=== PATIENT | female | born 1970 ===

== ENCOUNTER → 2017-12-02 | Outpatient (CLI) | payer OTHER ==
[~2017-12-02] MED LIST: ACYC400 PO; ALBU90I; ALBU90I INH; ALBU90OI INH; ALBU90OI6 INH; AMIT25 PO; AMIT50 PO; AMIT75 PO; AMLO5 PO; ARIP30 PO; ASPI81CH PO; BUPR150ER; BUPR150T2; BUPR150T2 PO; BYDUREON P2 MG/0.65 SQ; Byetta5 MCG/0.02 SC; CALCA500CH PO; CALGLU500; CARB200; CARB200ER; CLON.1 PO; CLON.5 PO; CLON1; CLON1 PO; CLON2; CLON2 PO; CODBUTACEC PO; CYCL10; CYCL10 PO; DESI25 PO; DESI50 PO; DESV50 PO; DIPATR PO; DOXE25; DOXE50; DULO30 PO; ERGO50000 PO; EXEN5PENI SUBQ; FENO160 PO; FENO54; FISH1000 PO; FLUO20; GABA300 PO; GLIM2 PO; GUAI120S1 PO; HYDACE5 PO; HYDPAM50 PO; IBUHYD; IBUP600; IBUP800 PO; INSUASPI SUBQ; INSULANPEN; INSULANPEN SC; KETO10 PO; LAMO100; LAMO100 PO; LATUDA80 MG PO; LIOT25; LISI20 PO; LORA1; LORA2 PO; METH10; METH10 PO; METO10 PO; METO50 PO; MODA200; MODA200 PO; OMEP20ER PO; OMEPRAZOLE MAGN20 MG PO; OXYACE5T; OXYC10ER; OXYC5; PARO20 PO; PRAM.125; PROM25 PO; Prilosec Otc20 MG PO; QUET100; QUET200; QUET300; QUET300 PO; RANI150; RANI150 PO; RISP1; RISP2 PO; RISP4 PO; ROXICODONE5 MG PO; RXHYDACE PO; RXPROM25 PO; Robaxin-750750 MG PO; SENN187; SERT25 PO; SERT50 PO; Strattera100 MG PO; TRAM50 PO; TRAZ100; TRAZ100 PO; TRAZ50; Ultram50 MG PO; VENL150ER; VENL75; Zithromax250 MG PO; [UNRECOGNIZED DRUG - CODE] PO; [UNRECOGNIZED DRUG - CODE] PO; [UNRECOGNIZED DRUG - REMARK]; [UNRECOGNIZED DRUG - REMARK]
[2017-12-02 16:21] LABS: U Amphetamine Screen DETECTED; U Barbituate Screen Not Detected; U Benzodiazapine Screen Not Detected; U Cocaine Screen Not Detected; U Methadone Screen Not Detected; U Methamphetamine Screen Not Detected; U Opiates Screen Not Detected; U Phencyclidine Screen Not Detected
[2017-12-02 16:22] LABS: U Buprenorphine Screen Not Detected; U Cannabinoids Screen Not Detected; U Oxycodone Screen Not Detected; U Propoxyphene Screen Not Detected
== END ==
LOC: LAB SHORT 14:35
PROVIDERS: Nurse Practitioner Psychiatric/Mental Health
DX: Z51.81 Encounter for therapeutic drug level monitoring (principal); Z79.899 Other long term (current) drug therapy

== ENCOUNTER → 2017-12-30 | Outpatient (CLI) | payer OTHER ==
[2017-12-30 19:54] LABS: U Amphetamine Screen DETECTED
[2017-12-30 19:55] LABS: U Barbituate Screen Not Detected; U Benzodiazapine Screen Not Detected; U Buprenorphine Screen Not Detected; U Cannabinoids Screen Not Detected; U Cocaine Screen Not Detected; U Methadone Screen Not Detected; U Methamphetamine Screen Not Detected; U Opiates Screen Not Detected; U Oxycodone Screen Not Detected; U Phencyclidine Screen Not Detected; U Propoxyphene Screen Not Detected
== END ==
LOC: LAB 17:30 → LAB SHORT 17:30
PROVIDERS: Nurse Practitioner Psychiatric/Mental Health
DX: Z51.81 Encounter for therapeutic drug level monitoring (principal); Z79.899 Other long term (current) drug therapy

== ENCOUNTER → 2018-01-20 | Outpatient (CLI) | payer OTHER ==
[2018-01-20 15:22] LABS: U Amphetamine Screen Not Detected; U Barbituate Screen Not Detected; U Benzodiazapine Screen Not Detected; U Buprenorphine Screen Not Detected; U Cannabinoids Screen Not Detected; U Cocaine Screen Not Detected; U Methadone Screen Not Detected; U Methamphetamine Screen Not Detected; U Opiates Screen Not Detected; U Oxycodone Screen Not Detected; U Phencyclidine Screen Not Detected; U Propoxyphene Screen Not Detected
== END | disposition home or self-care (01) ==
LOC: LAB 14:10 → LAB SHORT 14:10
PROVIDERS: Nurse Practitioner Psychiatric/Mental Health
DX: Z51.81 Encounter for therapeutic drug level monitoring (principal); Z79.899 Other long term (current) drug therapy

== ENCOUNTER → 2018-04-14 | Outpatient (CLI) | payer OTHER | LOC: LAB SHORT 15:57 → LAB 15:57 | DX: F15.21 Other stimulant dependence, in remission (principal); Z79.899 Other long term (current) drug therapy | CPT/HCPCS: G0480 ==

== ENCOUNTER → 2018-07-22 | Outpatient (CLI) | payer OTHER | END | disposition home or self-care (01) | LOC: LAB 12:57 → LAB SHORT 12:57 | DX: F90.2 Attention-deficit hyperactivity disorder, combined type (principal); Z79.899 Other long term (current) drug therapy | CPT/HCPCS: G0480 ==

== ENCOUNTER 2018-10-08 10:45 | Observation (INO) | payer OTHER ==
[~2018-10-08] VITALS: Ht 162.6 cm; Wt 117.0 kg
[2018-10-08 11:34] LABS: Source, Urine Voided
[2018-10-08 11:38] LABS: Bilirubin, Urine Neg (Neg); Blood, Urine Neg (Neg); Glucose Qualitative, Urine 4+ (Neg); Ketones, Urine 1+ (Neg); Leukocyte Esterase, Urine Neg (Neg); Nitrite, Urine Neg (Neg); Protein, Urine Neg (Neg); Specific Gravity, Urine 1.015 (1.003-1.022); Urobilinogen, Urine NORM (Normal)
[2018-10-08 11:39] LABS: Appearance, Urine Clear (Clear); Color, Urine Yellow (P-Yellow)
[2018-10-08 11:52] LABS: BASOPHILS ABSOLUTE AUTO 0.05 K/mm3 (0.00-0.23); BASOPHILS PERCENT AUTO 1 % (0-2); EOSINOPHILS ABSOLUTE AUTO 0.13 K/mm3 (0.00-0.68); EOSINOPHILS PERCENT AUTO 1 % (0-6); Hematocrit 45.2 % (33.0-51.0); Hemoglobin 15.5 g/dL (11.5-16.0); IMMATURE GRAN ABSOLUTE AUTO 0.04 K/mm3 (0.00-0.10); IMMATURE GRAN PERCENT AUTO 0 % (0-1); LYMPHOCYTES ABSOLUTE AUTO 2.43 K/mm3 (0.84-5.20); LYMPHOCYTES PERCENT AUTO 27 % (21-46); MONOCYTES PERCENT AUTO 7 % (4-13); Mean Corpuscular HGB 31.1 pg (26.0-34.0); Mean Corpuscular HGB Conc 34.3 g/dL (31.5-36.5); Mean Corpuscular Volume 91 fL (80-100); Mean Platelet Volume 9.5 fL (9.1-12.4); NEUTROPHILS PERCENT AUTO 65 % (41-73); Platelet Count 316 K/mm3 (150-400); RDW Coefficient Variation 12.1 % (11.7-14.2); RDW Standard Deviation 39.8 fL (35.1-46.3); Red Blood Cell Count 4.99 M/mm3 (3.80-5.20); White Blood Cell Count 9.15 K/mm3 (4.00-11.30)
[2018-10-08 11:54] LABS: U Amphetamine Screen DETECTED; U Barbituate Screen Not Detected; U Benzodiazapine Screen Not Detected; U Buprenorphine Screen Not Detected; U Cannabinoids Screen DETECTED; U Cocaine Screen Not Detected; U Methadone Screen Not Detected; U Methamphetamine Screen Not Detected; U Opiates Screen Not Detected; U Oxycodone Screen Not Detected; U Phencyclidine Screen Not Detected; U Propoxyphene Screen Not Detected
[2018-10-08 12:13] LABS: Alanine Aminotransfer (ALT/SGP 29 U/L (12-78); Albumin, Blood 3.7 g/dL (3.4-5.0); Albumin/Globulin Ratio 0.8 (0.8-1.8); Alk Phos 123 U/L (50-136); Anion Gap 9 mmol/L (6-16); Aspartate Aminotrans (AST/SGOT 31 U/L (12-37); Bilirubin, Total 0.5 mg/dL (0.1-1.0); Blood Urea Nitrogen 8 mg/dL (8-24); Bun/Creatinine Ratio 12.3 (12.0-20.0); CO2, Blood 27 mmol/L (21-32); Calcium, Blood 8.6 mg/dL (8.5-10.1); Chloride, Blood 99 mmol/L (98-108); Creatinine, Blood 0.65 mg/dL (0.40-1.00); Ethanol (Alcohol), Blood, Med <3 mg/dL; Globulin, Blood 4.4 g/dL (2.2-4.0); Glomerular Filtration Rate >60 (60-); Glucose, Blood 257 mg/dL (70-99); Potassium, Blood 3.8 mmol/L (3.5-5.5); Salicylate 3.5 mg/dL (2.8-20.0); Sodium, Blood 135 mmol/L (136-145); Total Protein, Blood 8.1 g/dL (6.4-8.2)
[2018-10-08 12:43] LABS: Acetaminophen, Random <2.0 ug/mL (10.0-30.0)
[2018-10-09] MEDS ORDERED: PRAZ1 (10:39)
[2018-10-09] MEDS ORDERED: Amphetamine Sal30 MG PO (10:41)
[2018-10-09] MEDS ORDERED: GLIP5 PO (10:41)
[2018-10-09] MEDS ORDERED: Prilosec Otc20 MG PO (10:42)
== END 2018-10-09 20:22 ==
LOC: ER 10:45 → EOR 10:46
PROVIDERS: ADMIT Emergency Medicine
DX: F31.4 Bipolar disorder, current episode depressed, severe, without psychotic features (principal); F43.20 Adjustment disorder, unspecified; F43.9 Reaction to severe stress, unspecified; J45.909 Unspecified asthma, uncomplicated; G43.909 Migraine, unspecified, not intractable, without status migrainosus; F17.200 Nicotine dependence, unspecified, uncomplicated; Z88.8 Allergy status to other drugs, medicaments and biological substances; Z88.5 Allergy status to narcotic agent; Z79.899 Other long term (current) drug therapy; Z79.4 Long term (current) use of insulin
CPT/HCPCS: 36415; 80053; 81003; 81025; 82947; 83036; 84443; 85025; 99285-25; G0378; G0480; Q3014

== ENCOUNTER 2019-01-30 16:19 | Observation (INO) | payer OTHER ==
[~2019-01-30] VITALS: Ht 162.6 cm; Wt 113.4 kg
[~2019-01-30 16:19] MED LIST changes: +Amphetamine Sal30 MG PO; +GLIP5 PO; +PRAZ1 PO
[2019-01-30 16:46] LABS: BASOPHILS ABSOLUTE AUTO 0.04 K/mm3 (0.00-0.23); BASOPHILS PERCENT AUTO 1 % (0-2); EOSINOPHILS ABSOLUTE AUTO 0.12 K/mm3 (0.00-0.68); EOSINOPHILS PERCENT AUTO 1 % (0-6); Hemoglobin 15.2 g/dL (11.5-16.0); IMMATURE GRAN ABSOLUTE AUTO 0.02 K/mm3 (0.00-0.10); IMMATURE GRAN PERCENT AUTO 0 % (0-1); LYMPHOCYTES ABSOLUTE AUTO 2.04 K/mm3 (0.84-5.20); LYMPHOCYTES PERCENT AUTO 23 % (21-46); MONOCYTES ABSOLUTE AUTO 0.61 K/mm3 (0.16-1.47); MONOCYTES PERCENT AUTO 7 % (4-13); Mean Corpuscular HGB 30.6 pg (26.0-34.0); Mean Corpuscular Volume 93 fL (80-100); Mean Platelet Volume 9.5 fL (9.1-12.4); NEUTROPHILS ABSOLUTE AUTO 6.03 K/mm3 (1.96-9.15); NEUTROPHILS PERCENT AUTO 68 % (41-73); Platelet Count 282 K/mm3 (150-400); RDW Coefficient Variation 12.4 % (11.7-14.2); Red Blood Cell Count 4.96 M/mm3 (3.80-5.20); White Blood Cell Count 8.86 K/mm3 (4.00-11.30)
[2019-01-30 17:16] LABS: Alanine Aminotransfer (ALT/SGP 31 U/L (12-78); Albumin, Blood 3.3 g/dL (3.4-5.0); Albumin/Globulin Ratio 0.8 (0.8-1.8); Alk Phos 119 U/L (50-136); Anion Gap 9 mmol/L (6-16); Aspartate Aminotrans (AST/SGOT 20 U/L (12-37); Bilirubin, Total 0.5 mg/dL (0.1-1.0); Blood Urea Nitrogen 8 mg/dL (8-24); Bun/Creatinine Ratio 12.6 (12.0-20.0); CO2, Blood 24 mmol/L (21-32); Calcium, Blood 8.4 mg/dL (8.5-10.1); Chloride, Blood 105 mmol/L (98-108); Creatinine, Blood 0.63 mg/dL (0.40-1.00); Ethanol (Alcohol), Blood, Med 30 mg/dL; Globulin, Blood 3.9 g/dL (2.2-4.0); Glomerular Filtration Rate >60 (60-); Glucose, Blood 153 mg/dL (70-99); Potassium, Blood 4.2 mmol/L (3.5-5.5); Salicylate 4.2 mg/dL (2.8-20.0); Sodium, Blood 138 mmol/L (136-145); Total Protein, Blood 7.2 g/dL (6.4-8.2)
[2019-01-30 17:26] LABS: Acetaminophen, Random <2.0 ug/mL (10.0-30.0)
[2019-01-30 18:09] LABS: Source, Urine Clean Catch
[2019-01-30 18:12] LABS: Bilirubin, Urine Neg (Neg); Blood, Urine 1+ (Neg); Glucose Qualitative, Urine Neg (Neg); Ketones, Urine Neg (Neg); Leukocyte Esterase, Urine Neg (Neg); Nitrite, Urine Neg (Neg); Protein, Urine Neg (Neg); Specific Gravity, Urine 1.015 (1.003-1.022); Urobilinogen, Urine NORM (Normal)
[2019-01-30 18:22] LABS: Appearance, Urine Clear (Clear); Color, Urine Yellow (P-Yellow)
[2019-01-30 18:23] LABS: Bacteria Mod /hpf; Red Blood Cells, Urine 0-2 /hpf (0-2); Squamous Epithelial Cells Rare /hpf (Few); White Blood Cells, Urine 0-2 /hpf (0-5)
[2019-01-30 18:28] LABS: U Amphetamine Screen DETECTED; U Barbituate Screen Not Detected; U Benzodiazapine Screen Not Detected; U Buprenorphine Screen Not Detected; U Cannabinoids Screen DETECTED; U Cocaine Screen Not Detected; U Methadone Screen Not Detected; U Methamphetamine Screen Not Detected; U Opiates Screen Not Detected; U Oxycodone Screen Not Detected; U Phencyclidine Screen Not Detected; U Propoxyphene Screen Not Detected
== END 2019-02-02 19:55 | disposition home or self-care (01) ==
LOC: ER 16:19 → EOR 16:20
PROVIDERS: Physician Assistant; ADMIT Emergency Medicine
DX: F33.2 Major depressive disorder, recurrent severe without psychotic features (principal); F17.210 Nicotine dependence, cigarettes, uncomplicated; Z88.5 Allergy status to narcotic agent; Z88.8 Allergy status to other drugs, medicaments and biological substances; Z79.899 Other long term (current) drug therapy
CPT/HCPCS: 36415; 80053; 81001; 81025; 82947; 84443; 85025; 87086; 99285; G0378; G0480; Q3014

== ENCOUNTER 2019-08-16 13:01 | Observation (INO) | payer OTHER ==
[~2019-08-16] VITALS: Ht 162.6 cm; Wt 99.8 kg
[2019-08-16 14:53] LABS: BASOPHILS ABSOLUTE AUTO 0.04 K/mm3 (0.00-0.23); BASOPHILS PERCENT AUTO 0 % (0-2); EOSINOPHILS ABSOLUTE AUTO 0.12 K/mm3 (0.00-0.68); EOSINOPHILS PERCENT AUTO 1 % (0-6); Hematocrit 39.7 % (33.0-51.0); Hemoglobin 13.1 g/dL (11.5-16.0); IMMATURE GRAN ABSOLUTE AUTO 0.04 K/mm3 (0.00-0.10); IMMATURE GRAN PERCENT AUTO 0 % (0-1); LYMPHOCYTES ABSOLUTE AUTO 1.98 K/mm3 (0.84-5.20); LYMPHOCYTES PERCENT AUTO 21 % (21-46); MONOCYTES ABSOLUTE AUTO 0.58 K/mm3 (0.16-1.47); MONOCYTES PERCENT AUTO 6 % (4-13); Mean Corpuscular HGB 30.8 pg (26.0-34.0); Mean Corpuscular Volume 93 fL (80-100); Mean Platelet Volume 9.5 fL (9.1-12.4); NEUTROPHILS ABSOLUTE AUTO 6.63 K/mm3 (1.96-9.15); NEUTROPHILS PERCENT AUTO 71 % (41-73); Platelet Count 283 K/mm3 (150-400); RDW Coefficient Variation 12.6 % (11.7-14.2); Red Blood Cell Count 4.26 M/mm3 (3.80-5.20); White Blood Cell Count 9.39 K/mm3 (4.00-11.30)
[2019-08-16 15:18] LABS: Alanine Aminotransfer (ALT/SGP 20 U/L (12-78); Albumin, Blood 3.5 g/dL (3.4-5.0); Albumin/Globulin Ratio 0.9 (0.8-1.8); Alk Phos 80 U/L (50-136); Anion Gap 6 mmol/L (6-16); Aspartate Aminotrans (AST/SGOT 13 U/L (12-37); Bilirubin, Total 0.3 mg/dL (0.1-1.0); Blood Urea Nitrogen 14 mg/dL (8-24); Bun/Creatinine Ratio 21.4 (12.0-20.0); CO2, Blood 26 mmol/L (21-32); Calcium, Blood 8.9 mg/dL (8.5-10.1); Chloride, Blood 107 mmol/L (98-108); Creatinine, Blood 0.65 mg/dL (0.40-1.00); Ethanol (Alcohol), Blood, Med <3 mg/dL; Glomerular Filtration Rate >60 (60-); Glucose, Blood 111 mg/dL (70-99); Potassium, Blood 4.1 mmol/L (3.5-5.5); Salicylate 3.7 mg/dL (2.8-20.0); Sodium, Blood 139 mmol/L (136-145); Total Protein, Blood 7.5 g/dL (6.4-8.2)
[2019-08-16 15:36] LABS: Acetaminophen, Random <2.0 ug/mL (10.0-30.0)
[2019-08-17 12:34] LABS: Source, Urine Clean Catch
[2019-08-17 12:43] LABS: Bilirubin, Urine Neg (Neg); Blood, Urine Neg (Neg); Glucose Qualitative, Urine Neg (Neg); Ketones, Urine Neg (Neg); Leukocyte Esterase, Urine Neg (Neg); Nitrite, Urine Neg (Neg); Protein, Urine Neg (Neg); Urobilinogen, Urine NORM (Normal)
[2019-08-17 12:46] LABS: Appearance, Urine Clear (Clear); Color, Urine Yellow (P-Yellow)
[2019-08-17 13:02] LABS: U Amphetamine Screen Not Detected; U Barbituate Screen Not Detected; U Benzodiazapine Screen Not Detected; U Buprenorphine Screen Not Detected; U Cannabinoids Screen Not Detected; U Cocaine Screen Not Detected; U Methadone Screen Not Detected; U Methamphetamine Screen Not Detected; U Opiates Screen Not Detected; U Oxycodone Screen Not Detected; U Phencyclidine Screen Not Detected; U Propoxyphene Screen Not Detected
== END 2019-08-18 10:30 ==
LOC: ER 13:01 → EOR 13:02
PROVIDERS: Physician Assistant; ADMIT Emergency Medicine
DX: R45.851 Suicidal ideations (principal); Z88.5 Allergy status to narcotic agent; Z88.8 Allergy status to other drugs, medicaments and biological substances
CPT/HCPCS: 80053; 81003; 81025; 85025; 99285-25; G0378; G0480; Q0177

== ENCOUNTER → 2019-09-15 | Outpatient (CLI) | payer OTHER ==
[2019-09-16 10:17] LABS: Candida species (DNA Probe) Negative (NEGATIVE); G. vaginalis (DNA Probe) Negative (NEGATIVE); T. vaginalis (DNA Probe) Negative (NEGATIVE)
[2019-09-18 04:10] LABS: CHLAMYDIA TRACHOMATIS, NAA Negative (Negative); HPV 16 Negative (Negative); HPV 18 Negative (Negative); HPV OTHER HR TYPES Positive (Negative); NEISSERIA GONORRHOEAE, NAA Negative (Negative)
== END ==
LOC: LAB 17:34 → LAB SHORT 17:34
PROVIDERS: Family Medicine
DX: Z12.4 Encounter for screening for malignant neoplasm of cervix (principal); N89.8 Other specified noninflammatory disorders of vagina; Z20.2 Contact with and (suspected) exposure to infections with a predominantly sexual mode of transmission
CPT/HCPCS: 87480; 87510; 87660

== ENCOUNTER 2020-09-17 00:09 | Inpatient (IN) | payer OTHER ==
[~2020-09-17] VITALS: Ht 170.2 cm; Wt 77.5 kg
[2020-09-17 00:24] LABS: Source, Urine Catheter
[2020-09-17 00:29] LABS: Bilirubin, Urine Neg (Neg); Blood, Urine 3+ (Neg); Glucose Qualitative, Urine Neg (Neg); Ketones, Urine 1+ (Neg); Leukocyte Esterase, Urine 1+ (Neg); Nitrite, Urine Pos (Neg); Protein, Urine 2+ (Neg); Urobilinogen, Urine NORM (Normal); pH, Urine 6.5 (5.0-8.0)
[2020-09-17 00:34] LABS: Appearance, Urine Cloudy (Clear); Color, Urine Yellow (P-Yellow)
[2020-09-17 00:34] LABS: PCO2 Arterial 41.6 mmHg (35-45); PO2 Arterial 88.3 mmHg (80-100); pH Blood Arterial 7.41 (7.35-7.45)
[2020-09-17 00:36] LABS: Amorphous Light (0-Heavy); Bacteria Many /hpf; Red Blood Cells, Urine 0-2 /hpf (0-2); Squamous Epithelial Cells Many /hpf (Few); White Blood Cells, Urine 0-2 /hpf (0-5)
[2020-09-17 00:40] LABS: U Amphetamine Screen Not Detected; U Barbituate Screen Not Detected; U Benzodiazapine Screen DETECTED; U Buprenorphine Screen Not Detected; U Cannabinoids Screen DETECTED; U Cocaine Screen Not Detected; U Methadone Screen Not Detected; U Methamphetamine Screen Not Detected; U Opiates Screen Not Detected; U Oxycodone Screen Not Detected; U Phencyclidine Screen Not Detected; U Propoxyphene Screen Not Detected
[2020-09-17 00:55] LABS: BASOPHILS ABSOLUTE AUTO 0.05 K/mm3 (0.00-0.23); BASOPHILS PERCENT AUTO 0 % (0-2); EOSINOPHILS ABSOLUTE AUTO 0.08 K/mm3 (0.00-0.68); EOSINOPHILS PERCENT AUTO 1 % (0-6); IMMATURE GRAN ABSOLUTE AUTO 0.06 K/mm3 (0.00-0.10); IMMATURE GRAN PERCENT AUTO 1 % (0-1); LYMPHOCYTES ABSOLUTE AUTO 2.54 K/mm3 (0.84-5.20); LYMPHOCYTES PERCENT AUTO 20 % (21-46); MONOCYTES ABSOLUTE AUTO 0.77 K/mm3 (0.16-1.47); MONOCYTES PERCENT AUTO 6 % (4-13); Mean Corpuscular HGB 31.6 pg (26.0-34.0); Mean Corpuscular HGB Conc 34.1 g/dL (31.5-36.5); Mean Corpuscular Volume 93 fL (80-100); NEUTROPHILS ABSOLUTE AUTO 9.35 K/mm3 (1.96-9.15); NEUTROPHILS PERCENT AUTO 73 % (41-73); RDW Coefficient Variation 12.8 % (11.7-14.2); Red Blood Cell Count 4.75 M/mm3 (3.80-5.20); White Blood Cell Count 12.85 K/mm3 (4.00-11.30)
[2020-09-17 01:06] LABS: Mean Platelet Volume 9.8 fL (9.1-12.4); Platelet Count 323 K/mm3 (150-400)
[2020-09-17 01:11] LABS: Ethanol (Alcohol), Blood, Med <3 mg/dL; Salicylate <1.7 mg/dL (2.8-20.0)
[2020-09-17 01:12] LABS: Alanine Aminotransfer (ALT/SGP 24 U/L (12-78); Albumin, Blood 3.1 g/dL (3.4-5.0); Albumin/Globulin Ratio 0.8 (0.8-1.8); Alk Phos 73 U/L (50-136); Anion Gap 2 mmol/L (6-16); Aspartate Aminotrans (AST/SGOT 32 U/L (12-37); Bilirubin, Total 0.8 mg/dL (0.1-1.0); Blood Urea Nitrogen 10 mg/dL (8-24); Bun/Creatinine Ratio 17.2 (12.0-20.0); CO2, Blood 30 mmol/L (21-32); Calcium, Blood 8.5 mg/dL (8.5-10.1); Chloride, Blood 107 mmol/L (98-108); Creatinine, Blood 0.58 mg/dL (0.40-1.00); Glomerular Filtration Rate >60 (60-); Glucose, Blood 100 mg/dL (70-99); Potassium, Blood 4.5 mmol/L (3.5-5.5); Sodium, Blood 139 mmol/L (136-145); Total Protein, Blood 7.1 g/dL (6.4-8.2)
[2020-09-17 01:21] LABS: Acetaminophen, Random <2.0 ug/mL (10.0-30.0)
--- NOTE | 2020-09-17 03:30 | NUR ---
PT TO ICU 14 VIA [place] WITH ED RN @ 0147. PT RESTING IN BED, MOANING, DOES NOT FOLLOW COMMANDS, CHEWING MOTIONS AND LIP SMACKING NOTED, PT ALSO APPEARS TO HAVE SOME LIGHT SENSITIVITY AND COVERS HER EYES WITH HER HANDS. O2 SATURATIONS> 95% ON RA, RESPIRATIONS ARE EVEN AND UNLABORED. MONITOR SHOWS SINUS RHYTHM WITH HR 80'S WITH INCREASES TO 100-110 WITH NURSING CARE, BP STABLE WITH SBP 150'S-160'S. PT INCONTINENT OF URINE AND STOOL, ATTENDS PLACED. REDNESS TO PTS ARMS BILATERALLY, BLANCHABLE AND WARM TO THE TOUCH. PT MOVES ALL EXTREMETIES, DIFFICULT TO REPOSITION, PERFORM TERRY CARE AND APPLY ATTENDS R/T PTS RIGIDITY AND RESISTANCE TO NURSING CARE. CALL PLACED TO DR SIMON TO NOTIFY OF PTS ARRIVAL TO UNIT.
--- NOTE | 2020-09-17 04:00 | NUR ---
DR SIMON IN TO EVALUATE PT
[2020-09-17 04:47] LABS: Source, Urine Catheter
[2020-09-17 04:55] LABS: BASOPHILS ABSOLUTE AUTO 0.05 K/mm3 (0.00-0.23); BASOPHILS PERCENT AUTO 0 % (0-2); EOSINOPHILS ABSOLUTE AUTO 0.08 K/mm3 (0.00-0.68); EOSINOPHILS PERCENT AUTO 1 % (0-6); Hematocrit 41.7 % (33.0-51.0); Hemoglobin 14.1 g/dL (11.5-16.0); IMMATURE GRAN ABSOLUTE AUTO 0.04 K/mm3 (0.00-0.10); IMMATURE GRAN PERCENT AUTO 0 % (0-1); LYMPHOCYTES ABSOLUTE AUTO 2.79 K/mm3 (0.84-5.20); LYMPHOCYTES PERCENT AUTO 22 % (21-46); MONOCYTES ABSOLUTE AUTO 0.84 K/mm3 (0.16-1.47); MONOCYTES PERCENT AUTO 7 % (4-13); Mean Corpuscular HGB 30.9 pg (26.0-34.0); Mean Corpuscular HGB Conc 33.8 g/dL (31.5-36.5); Mean Corpuscular Volume 91 fL (80-100); Mean Platelet Volume 9.4 fL (9.1-12.4); NEUTROPHILS ABSOLUTE AUTO 8.92 K/mm3 (1.96-9.15); NEUTROPHILS PERCENT AUTO 70 % (41-73); Platelet Count 348 K/mm3 (150-400); RDW Coefficient Variation 12.7 % (11.7-14.2); RDW Standard Deviation 42.8 fL (35.1-46.3); Red Blood Cell Count 4.56 M/mm3 (3.80-5.20); White Blood Cell Count 12.72 K/mm3 (4.00-11.30)
[2020-09-17 04:59] LABS: Bilirubin, Urine Neg (Neg); Blood, Urine Neg (Neg); Glucose Qualitative, Urine Neg (Neg); Ketones, Urine Neg (Neg); Leukocyte Esterase, Urine Neg (Neg); Nitrite, Urine Neg (Neg); Protein, Urine Neg (Neg); Urobilinogen, Urine NORM (Normal)
[2020-09-17 05:15] LABS: Alanine Aminotransfer (ALT/SGP 21 U/L (12-78); Albumin, Blood 3.1 g/dL (3.4-5.0); Albumin/Globulin Ratio 0.8 (0.8-1.8); Alk Phos 72 U/L (50-136); Anion Gap 5 mmol/L (6-16); Aspartate Aminotrans (AST/SGOT 15 U/L (12-37); Bilirubin, Total 0.7 mg/dL (0.1-1.0); Blood Urea Nitrogen 11 mg/dL (8-24); Bun/Creatinine Ratio 20.6 (12.0-20.0); CO2, Blood 27 mmol/L (21-32); Calcium, Blood 8.3 mg/dL (8.5-10.1); Chloride, Blood 108 mmol/L (98-108); Creatinine, Blood 0.53 mg/dL (0.40-1.00); Globulin, Blood 3.7 g/dL (2.2-4.0); Glomerular Filtration Rate >60 (60-); Glucose, Blood 99 mg/dL (70-99); Potassium, Blood 3.7 mmol/L (3.5-5.5); Sodium, Blood 140 mmol/L (136-145); Total Protein, Blood 6.8 g/dL (6.4-8.2)
[2020-09-17 05:21] LABS: Appearance, Urine Clear (Clear); Color, Urine Yellow (P-Yellow)
--- NOTE | 2020-09-17 07:33 | NUR ---
SHIFT SUMMARY NO ACUTE CHANGES, PT REMAINS WITH DEC LOC, WITHDRAWS FROM PAINFUL STIMULI, RESISTANT TO NURSING CARE. PT WILL NOD HEAD BOTH YES AND NO TO QUESTIONS BUT DOES NOT FOLLOW SIMPLE COMMANDS. PT RESTS T/O SHIFT, REMAINS ON RA, VSS. LINDQUIST PLACED THIS SHIFT, SPECIMENT SENT TO LAB. PT MOVES ALL EXTREMETIES, REPOSITONS SELF IN BED. REPORT GIVEN TO IGNACIO MORILLO.
[2020-09-17 07:58] LABS: Free Thyroxine 1.16 ng/dL (0.70-1.60); Thyroid Stimulating Hormone 2.66 uIU/mL (0.360-4.800)
--- NOTE | 2020-09-17 08:12 | NUR ---
PT LAYING IN BED WITH EYES CLOSED. PT MOANS ONLY. PT IS RESISTANT TO CARE. DIFFICULT TO ASSESS PUPILS PT WILL CLOSE EYES TIGHTLY UPON ATTEMPTING TO OPEN THEM. PT BRINGS HANDS UP TO HEAD AND MOANS; MAY HAVE HEADACHE. NECK DOESNT APPEAR STIFF; ABLE TO MOVE IT DOWN W/O INCREASED REACTION. PT OCCASSIONALLY WILL OPEN EYES AND LOOK AT YOU WHEN NAME SAID LOUDLY, WILL QUICKLY CLOSE EYES AGAIN. DOES NOT FOLLOW ANY DIRECTIONS OR ANSWER ANY QUESTIONS. BP HTN. AFEBRILE. NS RUNNING AT 100CC/HR. PT NPO. ORAL CARE ATTEMPTED, RESISTANT TO ORAL CARE.
--- NOTE | 2020-09-17 08:28 | NUR ---
DR KABA IN TO SEE PT; FULL UPDATE GIVEN. IV FLUIDS INCREASED TO 125CC/HR
--- NOTE | 2020-09-17 11:19 | NUR ---
PT MORE ALERT WHEN ASSESSED. HAS A BLANK STARE WHEN SPEAKING TO HER, UNABLE TO FOLLOW DIRECTIONS. NOT SPEAKING WORDS, BUT GROANING HAS DECREASED. ROCEPHIN IV STARTED. LOW GRADE TEMP AT 99.1, NO OTHER CHANGES. PT'S MOTHER CALLED FOR INFORMATION. NO NEXT OF KIN LISTED. MOTHER NOTIFIED THAT DAUGHTER IS HERE AND IS ABLE TO VISIT. PT HAS SON PER MOTHER. PT'S MOTHER REFUSED TO GIVE PHONE NUMBER FOR SON BUT STATED SHE WOULD CALL HIM.
--- NOTE | 2020-09-17 11:37 | NUR ---
PT'S SON CALLED; WHOM IS NOEXT OF KIN. UPDATE PROVIDED.
--- NOTE | 2020-09-17 15:50 | NUR ---
NO CHANGE IN PT ASSESSMENT. PT'S MOTHER AT BEDSIDE; GIVEN UPDATE BY DR KABA. PT NOW PCU STATUS.
--- NOTE | 2020-09-17 16:29 | NUR ---
REPORT GIVEN TO JESUS MORILLO. PT TRANSFERED TO PCU 2 VIA BED.
--- NOTE | 2020-09-17 16:51 | NUR ---
TRANSFER TO PCU 2: TRANSFER FROM ICU VIA BED. PT EYES OPEN, NOT RESPONDING VERBALLY. MOANED TWICE. BRIEF CHANGED AND REPOSITIONED IN BED. VITAL SIGNS STABLE. ON ROOM AIR SATING ABOVE 92%. TELE BOX CALLED AND CONFIRMED, SINUS RHYTHM AT 93. PT NOT RESPONDING TO CARES QUESTIONS. DOES NOT APPEAR IN ANY PAIN. LINDQUIST CATH IN PLACE DRAINING TO GRAVITY. CBG TAKEN AT 89. LR INFUSING AT 125 ML/HR. WILL CONTINUE TO MONITOR.
--- NOTE | 2020-09-17 18:03 | NUR ---
SHIFT SUMMARY: PT SLEEPING IN ROOM SINCE TRANSFER. NODDING YES AND NO TO CARES QUESTIONS. NONVERBAL. NO CHANGES SINCE LAST NOTE. WILL CONTINUE TO MONITOR AND REPORT OFF. Q2 TURNING. NO ACUTE CHANGES.
--- NOTE | 2020-09-18 00:26 | NUR ---
LOW CBG / CALL TO MD CALL TO MD SIMON TO REPORT PT NPO W/ CBG 69. MD W/ ORDER TO DC LR GTT & GIVE 25 MLS 50% DEXTROSE IV & 1.5L D5 1/2 NS GTT, SEE ORDERS.
[2020-09-18 04:07] LABS: BASOPHILS ABSOLUTE AUTO 0.03 K/mm3 (0.00-0.23); BASOPHILS PERCENT AUTO 0 % (0-2); EOSINOPHILS ABSOLUTE AUTO 0.17 K/mm3 (0.00-0.68); EOSINOPHILS PERCENT AUTO 2 % (0-6); Hematocrit 42.1 % (33.0-51.0); Hemoglobin 14.3 g/dL (11.5-16.0); IMMATURE GRAN ABSOLUTE AUTO 0.03 K/mm3 (0.00-0.10); IMMATURE GRAN PERCENT AUTO 0 % (0-1); LYMPHOCYTES ABSOLUTE AUTO 3.16 K/mm3 (0.84-5.20); LYMPHOCYTES PERCENT AUTO 37 % (21-46); MONOCYTES ABSOLUTE AUTO 0.77 K/mm3 (0.16-1.47); MONOCYTES PERCENT AUTO 9 % (4-13); Mean Corpuscular HGB 31.5 pg (26.0-34.0); Mean Corpuscular Volume 93 fL (80-100); Mean Platelet Volume 9.4 fL (9.1-12.4); NEUTROPHILS ABSOLUTE AUTO 4.43 K/mm3 (1.96-9.15); NEUTROPHILS PERCENT AUTO 52 % (41-73); Platelet Count 287 K/mm3 (150-400); RDW Coefficient Variation 12.6 % (11.7-14.2); RDW Standard Deviation 43.7 fL (35.1-46.3); Red Blood Cell Count 4.54 M/mm3 (3.80-5.20); White Blood Cell Count 8.59 K/mm3 (4.00-11.30)
[2020-09-18 04:27] LABS: Anion Gap 4 mmol/L (6-16); Blood Urea Nitrogen 10 mg/dL (8-24); Bun/Creatinine Ratio 16.1 (12.0-20.0); CO2, Blood 28 mmol/L (21-32); Calcium, Blood 8.3 mg/dL (8.5-10.1); Chloride, Blood 108 mmol/L (98-108); Creatinine, Blood 0.62 mg/dL (0.40-1.00); Glomerular Filtration Rate >60 (60-); Glucose, Blood 95 mg/dL (70-99); Potassium, Blood 3.7 mmol/L (3.5-5.5); Sodium, Blood 140 mmol/L (136-145)
--- NOTE | 2020-09-18 06:35 | NUR ---
SHIFT SUMMARY PT LETHARGIC. OPENS EYES TO VERBAL STIMULI W/ TOUCH. PT NOT ANSWERING Y/N Q's. PT STARING/GLARING ONLY. VSS. D5 1/2 NS GTT INFUSING PER ORDERS. CBG's STABLE. BED ALARM ON.
--- NOTE | 2020-09-18 08:04 | NUR ---
ASSUMED CARE FROM NOC RN PT REMAINS NONVERBAL. PT WILL GLANCE AT RN WHEN SPOKEN TO THEN FALLS BACK ASLEEP. PT IS INCONTINENT OF STOOL AND HAS LINDQUIST IN PLACE AND DRAINING. SLIGHT ELEVATED BP THIS MORNING. PT SCHEDULED FOR EEG TODAY.
--- NOTE | 2020-09-18 12:47 | NUR ---
EEG PT STILL ONLY RESPONDING TO VERBAL STIMULI OCCASSIONALLY, SHE WILL MAKE EYE CONTACT THEN QUICKLY GO BACK TO SLEEP. PT HAS AN EEG ORDERED, THE MIMEOGRAPH OPERATOR IS AVAILABLE FOR TESTING FRIDAY-FRIDAY 8-4PM. THE ORDER WILL REMAIN IN PLACE AND HOPEFULLY TOMORROW THE PT CAN HAVE THE EEG COMPLETED
--- NOTE | 2020-09-18 18:04 | NUR ---
SHIFT SUMMARY PT REMAINS MOSTLY NONVERBAL THROUGHOUT THE DAY. SHE WILL NOD AND OCCASSIONALLY GRUNT AT ONE POINT TODAY SHE SAID "YEAH" IN RESPONSE TO A QUESTION BUT ONLY ONCE DID THIS HAPPEN. PT HAS BEEN INCONTINENT OF STOOL AND HAS A CATHETER IN PLACE FOR URINE. PT'S SON IS INVOLVED AND IS HER NEXT OF KIN AND HEALTHCARE REP; HE HAS STATED THAT ONLY HIM, ZAKI, HIS GRANDMOTHER GANGA AND HIS MOTHER'S FRIEND, MYRTLE ARE THE ONLY PEOPLE WHO CAN KNOW ANYTHING ABOUT THE PATIENT; SHE IS CONFIDENTIAL. PT HAS BEEN MORE ALERT THIS AFTERNOON BUT STILL DOES NOT RESPOND MORE THAN A NOD OR SHAKE HER HEAD. PT IS IN HER ROOM WATCHING TV AT THIS TIME
--- NOTE | 2020-09-19 04:46 | NUR ---
SHIFT SUMMARY PATIENT RESPONDS TO VERBAL STIMULI, SOMETIMES SHE JUST STARES BUT OCCASIONALLY SHE ANSWERS QUESTIONS BY NODDING HER HEAD YES OR NO. PATIENT WOULD FOLLOW DIRECTION SOMETIMES BUT NOT OTHERS. PATIENT TURNED Q2 HOURS, LINDQUIST CATHETER DRAINING, BRIEF CHANGES NEEDED, PATIENT INCONTINENT OF BOWEL. WASHED PATIENTS HAIR AND FACE. VSS, NO ACUTE CHANGES. CALL LIGHT IN REACH, BED IN LOW POSITION, BED ALARM ON.
--- NOTE | 2020-09-19 07:26 | NUR ---
BLOOD GLUCOSE CHECKED @1939 WAS 116 08/21/20, DID NOT TRANSFER TO COMPUTER.
--- NOTE | 2020-09-19 08:09 | NUR ---
ASSUMED CARE FROM NOC RN PT WAS SLEEPING DURING MORNING REPORT. WHEN YISEL PETERS WENT TO ASSESS THE PT SHE WAS STILL SLEEPING BUT WAS VERY DIFFICULT TO AROUSE. PUPILS WERE REACTIVE, PT REACTED TO PAINFUL STIMULI BY DR. KABA BUT WOULD NOT SQUEEZE HANDS SHE WOULD YESTERDAY. PT WAS VERY LETHARGIC AND WOULD NOT STAY AWAKE FOR MORE THAN A FEW SECONDS. A CBG WAS COMPLETED AGAIN AND WAS 91, AND A URINE TOX SCREEN WAS SENT AGAIN FOR RECHECK. BP IS ELEVATED, DR KABA IS AWARE. PT IS RESTING AT THIS TIME. ADDENDUM TO YESTERDAY 09/18/20 THE CBG SCHEDULED FOR TESTING AT 1800 DID NOT TRANSFER TO THE EMAR; YISEL PETERS DID CHECK THE CBG AND RECORDED IT SUCH ON THE EMAR WHEN CHARTING NOT GIVEN ON THE 1800 HUMALOG; THE CBG WAS 108.
[2020-09-19 08:26] LABS: U Amphetamine Screen Not Detected; U Barbituate Screen Not Detected; U Benzodiazapine Screen DETECTED; U Buprenorphine Screen Not Detected; U Cannabinoids Screen DETECTED; U Cocaine Screen Not Detected; U Methadone Screen Not Detected; U Methamphetamine Screen Not Detected; U Opiates Screen Not Detected; U Oxycodone Screen Not Detected; U Phencyclidine Screen Not Detected; U Propoxyphene Screen Not Detected
--- NOTE | 2020-09-19 17:24 | NUR ---
SHIFT SUMMARY PT HAS BEEN LETHARGIC TODAY AND REMAINS NON VERBAL. THE DAY WENT ON SHE DID INTERACT MORE WITH STAFF, SHE BECAME MORE ALERT BUT IS STILL NOT USING HER CALL LIGHT OR TALKING. PT HAD AN MRI COMPLETED TODAY AND VISITED WITH HER MOTHER. AN EEG HAS BEEN ORDERED AND RN LORRAINE AND SAMMYING MACHINE OPERATORMEKHI URIOSTEGUI CALLED MULTIPLE TIMES TO HAVE THE EEG COMPLETED, A MESSAGE WAS LEFT AND THERE WAS NO RESPONSE, NO CALL RETURNED; THE EEG HAS NOT BEEN COMPLETED. PT HAS MAINTENENCE FLUIDS RUNNING AT THIS TIME AND IS RESTING IN BED. SHE HAS BEEN FREQUENTLY REPOSITIONED AND PT HAS INDEPENDENTLY REPOSITIONED DURING THE DAY. PT HAS LINDQUIST IN PLACE AND IS DRAINING. VS STABLE, PT REMAINS ON RA AND IS NOW WITHOUT TELE HER STATUS WAS CHANGED TO MEDICAL. PT'S MOTHER MENTIONED WANTING THE PT TO BE DISCHARGED TO AN [facility] TO WHICH THE PT NODDED IN AGREEMENT.
--- NOTE | 2020-09-19 21:56 | NUR ---
ASSUMED CARE OF PATIENT AT APPROIMATELY 1905 FROM YVETTE Holloway RN. PATIENT OPENS EYES TO STAFF ENTERING ROOM AT TIMES; OPENS EYES TO TOUCH AT TIMES. PATIENT NONVERBAL; NODS HEAD YES OR NO; DOESNT FOLLOW COMMANDS; DOESNT ASSIST WITH TURNING IN BED. MEDICAL NO TELE STATUS; OXYGEN SATURATION ABOVE 90% ON ROOM AIR. PATIENT REFUSED ORAL CARE BUT ALLOWED STAFF TO PUT CHAPSTICK ON. PATIENT HAS URINARY CATHETER; ATTENDS IN PLACE FOR STOOL INCONTINENCE AT TIMES. IVF INFUSING PER ORDER. PATIENT CURRENTLY RESTING IN BED; CALL LIGHT IN REACH; BED IN LOWEST POSISTION; BED ALARM ON.
--- NOTE | 2020-09-20 06:19 | NUR ---
NO ACUTE CHANGES. VSS. PATIENT SLEPT FOR ABOUE NINE HOURS LAST NIGHT.
[2020-09-20 16:11] LABS: Anion Gap 5 mmol/L (6-16); Blood Urea Nitrogen 10 mg/dL (8-24); CO2, Blood 28 mmol/L (21-32); Chloride, Blood 105 mmol/L (98-108); Creatinine, Blood 0.59 mg/dL (0.40-1.00); Glomerular Filtration Rate >60 (60-); Glucose, Blood 105 mg/dL (70-99); Magnesium, Blood 1.9 mg/dL (1.6-2.4); Potassium, Blood 4.1 mmol/L (3.5-5.5); Sodium, Blood 138 mmol/L (136-145)
--- NOTE | 2020-09-20 18:06 | NUR ---
SHIFT SUMMARY; ASSUMED CARE AT 0700, SLEPT MOST OF SHIFT. AWAKES TO VERBAL STIMULI AND NODS HEAD TO QUESTIONS. MAKES EYE CONTACT AND INTERMITANTLY FOLLOWED SIMPLE INSTRUCTIONS. ST EVAL TODAY, REGULAR DIET ORDERED, TOLERATED WELL WITH FEEDING ASSISTANCE. DAUGHTER IN LAW IN ROOM IN AFTERNOON. VSS, WILL CONTINUE TO TREAT AND MONITOR UNTIL CHANGE OF SHIFT.
--- NOTE | 2020-09-21 05:35 | NUR ---
SHIFT SUMMARY PT RESTED THROUGHOUT THE NIGHT. NEUROLOGIST CAME TO ROOM TO ATTEMPT TO COMMUNICATE WITH PATIENT, BUT PT DID NOT PARTICIPATE IN COMMUNICATION. AT BEST, PT MAKES EYE CONTACT AND NOD HEAD FOR YES OR NO. VSS. LINDQUIST DRAINED 1000ML, NO BM. TURNS FREQUENTLY TO PREVENT SKIN BREAK DOWN. D5 IVF STOPPED, AND PT BACK ON AC/HS SLIDING SCALE PROTOCOL SINCE PT TOLERATING DIETS AND ABLE TO EAT SAFELY PER SPEECH. NO C/O PAIN. VSS. CALL LIGHT WITHIN REACH, BED IN LOWEST POSITION. BED ALARM ON. WILL CONTINUE TO MONITOR.
--- NOTE | 2020-09-21 18:17 | NUR ---
SHIFT SUMMARY; ASSUMED CARE AT 0700. ALERTNESS INCREASED THROUGHOUT DAY. MOVING ALL FOUR EXTREMETIES AND REPOSITIONING IN BED. FED SELF AND DRINKING FLUIDS WITHOUT ASSISTANCE. MAKES EYE CONTACT AND ANSWERS SIMPLE QUESTIONS WITH ONE WORD ANSWERS. SITTING UPRIGHT IN HIGH FOWLERS THROUGHOUT SHIFT WATCHING TV. LINDQUIST DRAINING CLEAR YELLOW URINE. MOTHER AT BEDSIDE IN AFTERNOON. SMILES WHEN SON AND GRANDCHILD IS MENTIONED. WILL CONTINUE TO MONITOR AND TREAT UNTIL CHANGE OF SHIFT.
--- NOTE | 2020-09-21 20:57 | NUR ---
ASSUMED CARE PT WAS SITTING UP IN BED WATCHING TV AND LOOKED AT US WHEN RECIEVING REPORT. PT WAS RESISTANT TO LETTING THIS NURSE LISTEN TO LUNG SOUNDS SHE PUSHED BACK INTO BED. PT NODDED WHEN INFORMING OF VITAL SIGNS PROCEDURE. WILL CONTINUE TO MONITOR PT.
[2020-09-22 04:18] LABS: Anion Gap 5 mmol/L (6-16); Blood Urea Nitrogen 16 mg/dL (8-24); Bun/Creatinine Ratio 25.4 (12.0-20.0); CO2, Blood 28 mmol/L (21-32); Calcium, Blood 8.9 mg/dL (8.5-10.1); Chloride, Blood 106 mmol/L (98-108); Creatinine, Blood 0.63 mg/dL (0.40-1.00); Glomerular Filtration Rate >60 (60-); Glucose, Blood 95 mg/dL (70-99); Magnesium, Blood 1.9 mg/dL (1.6-2.4); Sodium, Blood 139 mmol/L (136-145)
--- NOTE | 2020-09-22 06:26 | NUR ---
SHIFT SUMMARY PT HAS BEEN ALERT. WAKES UP WHEN SOMEONE WALKS INTO THE ROOM; MAKES EYE CONTACT; NODS Y ES OR NO TO ANSWER QUESTIONS. VITALS HAVE BEEN STABLE. DENIES PAIN AND SOB. LINDQUIST CATHETER IN PLACE AND DRAINING. THERE HAVE BEEN NO ACUTE CHANGES.
--- NOTE | 2020-09-22 09:06 | NUR ---
PHYSICIAN CALL DR. KABA CALLED TO INFORM THAT PT HAD NOT BEEN GIVEN IM INJECTION OF 2 MG OF ATIVAN ORDERED BY DR. KIDD. ORDER INPUT PER VERBAL ORDER FROM DR. KABA. WILL GIVEN ONCE APPROVED BY PHARMACY.
--- NOTE | 2020-09-22 12:43 | NUR ---
PHYSICIAN NOTIFIED PHYSICIAN NOTIFIED OF NO CBG ORDERED. ORDERS PUT IN PER PROVIDER, AC/HS.
--- NOTE | 2020-09-22 17:20 | NUR ---
SHIFT SUMMARY PT ALERT AND ORIENTED TO SELF AND FAMILY. PT BEGAN TO SPEAK IN SMALL SENTENCES AFTER RECIEVING IM ATIVAN. WHEN I ASKED ABOUT HER GRANDAUGHTER THE PATIENT STATED, "SHE IS GOOD." CONTINUES TO NOD OR SAY YES AT THIS TIME. NO LONGER SPEAKING IN SENTENCES AT END OF SHIFT. VS REMAIN STABLE. HR STABLE. BP STABLE. PT REPORTS NO CP OR PRESSURE. OXYGEN SATURATION MAINTAINED ABOVE 95% ON RA. PT ABLE TO ASSIST IN REPOSITIONING. WILL CONTINUE TO MONITOR UNTIL REPORT GIVEN TO NIGHTSHIFT RN.
--- NOTE | 2020-09-22 18:10 | NUR ---
PHYSICIAN NOTIFIED PHYSICIAN NOTIFIED OF POSSIBLE SMALL AMOUNT OF BLOOD IN STOOL. LESS THAN A QUARTER IN SIZE. GUIAC STUDY ORDERED AND HEMAGLOBIN AND HEMATOCRIT ORDERED FOR AM PER PHYSICIAN.
--- NOTE | 2020-09-23 04:16 | NUR ---
SHIFT SUMMARY PATIENT IS ALERT AND ORIENTED TO SELF AND CITY, BUT DOES NOT KNOW WHERE SHE IS AND WHAT YEAR IT IS. PATIENT REPOSITIONS SELF IN BED. PATIENT WILL ANSWER VERBALLY IF ASKED ONE QUESTION AT A TIME, SLOW TO RESPOND. PATIENT AWAKE AND WATCHING TV FOR A COUPLE HOURS THEN SLEPT THE REST OF THE SHIFT. 02 SATS >95% ON RA. VSS, NO ACUTE CHANGES. CALL LIGHT IN REACH.
[2020-09-23 06:00] LABS: Hematocrit 49.1 % (33.0-51.0); Hemoglobin 16.8 g/dL (11.5-16.0)
--- NOTE | 2020-09-23 17:42 | NUR ---
SHIFT SUMMARY PT ALERT AND ORIENTED TO SELF AND FAMILY. NODS HEAD YES OR NO TO QUESTIONS. WILL SAY YES AT TIMES. SON IN TO VISIT PT T/O DAY. PT ABLE TO TURN SELF IN BED NEEDED. LINDQUIST PATENT TO GRAVITY DRAIN. HR STABLE. BP STABLE. OXYGEN SATURATION MAINTAINED ABOVE 92% ON RA. WILL CONTINUE TO MONITOR UNTIL REPORT GIVEN TO DAYSHIFT RN.
--- NOTE | 2020-09-23 21:03 | NUR ---
CARE ASSUMPTION AT SHIFT CHANGE PT WAS AWAKE AND USING BEDPAN. PT HAD A BM AND WAS CLEANED UP AND CLEAN LINENS PROVIDED. PT IS AWAKE SPEAKING WHEN ASKED QUESTIONS BUT ONLY USING SHORT PHRASES TO ANSWER. PT IS LYING IN BED DENYING ANY PAIN OR NAUSEA WATCHING TV. VSS, GIULIANA.
[2020-09-23 21:49] LABS: Stool Occult Blood Guaiac 1 Neg (Neg)
--- NOTE | 2020-09-24 03:46 | NUR ---
BUCKET OPERATOR SUMMARY PT HAS BEEN AXO X4 THIS SHIFT BUT IS STILL VERY WITHDRAWN. THE PT HAS BEEN ABLE TO PARTICIPATE IN CONVERSATION BUT ONLY USES SHORT SENTANCES. THE PT HAS SLEPT COMFORTABLY FOR MOST OF THE SHIFT. NO NEW SIGNS OR SYMPTOMS THIS SHIFT. VSS, WCTM UNTIL REPORT GIVEN TO DAYSHIFT RN.
--- NOTE | 2020-09-24 09:07 | NUR ---
REPORT GIVEN FOR PT TRANSFER PT TO BE TRANFERRED TO ROOM 335. REPORT GIVEN TO ROOM 335 NURSE. VS TABLE. BELONGINGS WITH PT. PT WILL BE TRANSORTED BY COMPUTER LAB ASSISTANT IN BED.
--- NOTE | 2020-09-24 18:01 | NUR ---
SHIFT SUMMARY 0930 RECEIVED PT TO RM 335 FROM PCU 2. ADMITTED FOR ACUTE ENCEPHALOPATHY; FOUND DOWN IN URINE AND FECES. PT IS MOSTLY NONVERBAL. WILL ANS YES OR NO AND NOD. SAYS THANK YOU. PT CURRENTLY ON BEDREST, BUT HAD BEEN AMBULATORY AT [facility]. PT WOKE TODAY FOR LUNCH AND HAS BEEN AWAKE THE REMAINDER OF THE DAY. PT IS ABLE TO EAT AND DRINK W/O DIFFICULTY OR ANY S/SX'S OF ASPIRATION OR COUGHING. PER REPORT, PT'S FAMILY WANT PT TO HAVE A SWALLOW EVAL BY [facility]. IT APPEARS THAT PT HAS ALREADY HAD ONE SEVERAL DAYS AGO. IT IS UNCLEAR WHY THEY WOULD WANT ANOTHER ONE NOW THAT PT IS ALERT AND RESPONSIVE. VISITOR TO FOR A WHILE TODAY. PT AWAKE WATCHING TV. NO C/O. DENIES FURTHER NEEDS. CALL LT IN REACH.
--- NOTE | 2020-09-25 06:40 | NUR ---
SHIFT SUMMARY PATIENT CONTINUES TO BE NONVERBAL ASIDE FROM ONE WORD ANSWERS. SHE STARES BLANKLY WITH MINIMAL EYE CONTACT. PATIENT DENIES PAIN. SLEPT WELL OVERNIGHT. IV PATENT AND FLUSHED. BED IN LOWEST POSITION WITH WHEELS LOCKED AND ALARM ON. CALL LIGHT WITHIN REACH. REPORT GIVEN TO ONCOMING RN.
--- NOTE | 2020-09-25 17:41 | NUR ---
SUMMARY PT CONTINUES CONFUSED, INITIATES MINIMAL VERBAL. WEAK/FATIGUED. THIS AM SHE AROUSED TO NAME, ABLE TO STATE BIRTHDATE ACCURATELY, SEEMED TO NOD OR ANSWER APPROP TO SIMPLE QUESTIONS HOWEVER WHEN ASKED CURRENT DATE/MONTH/YEAR, PLACE ETC REPEATEDLY GAVE BIRTHDATE. DR JOYCE IN TO ASSESS, CONTINUE CURRENT TX, STATE UNTIL PT ABLE TO GET OOB & MAINTAIN CONTINENCE TO CONTINUE LINDQUIST CATH. PT HAS BEEN INCONT OF LRG BM TODAY. SENIOR PRODUCT MANAGER REPORT CURRENTLY MENSTRUATING BRIGHT RED BLOOD TODAY VIA ATTENDS. PT SOMEWHAT FEARFUL OF GETTING OOB THIS AM HOWEVER THIS AFTERNOON MENTATION SEEMS BRIGHTER, SHE GOT UP 1 ASSIST TO CHAIR FOR DINNER. DR GARCIA IN TO SEE HER STATE TO ENCOURAGE MOBILIZATION. VSS. AFFECT HAS BEEN CALM, SHE SMILES w INTERACTION, SHE IS ABLE TO FEED HERSELF W MINIMAL SUPERVISION.
--- NOTE | 2020-09-26 04:15 | NUR ---
SUMMARY: PT CONT'S MOSTLY CONFUSED BUT IS ORIENTED TO SELF AND POSSIBLY SURROUNDINGS. SHE STATED "[facility]" WHEN ASKED ABOUT PLACE BUT WAS OBSERVED LOOKING AT HER [place]. SHE ALSO KEPT STATING HER BDAY TO THE MAJORITY OF ORIENTATION Q'S INCLUDING TODAY'S DATE. PT SEEMS TO ANSWER YES/NO Q'S CORRECTLY, DENYING PAIN AND ALL OTHER COMPLAINTS. SHE SMILES AT STAFF, NODS HEAD AND ATTEMPTS TO INTERACT BUT STILL COMMUNICATES IN BRIEF WORDS/PHRASES. AFFECT IS FLAT AND WITHDRAWN BUT SHE'S PLEASANT AND COOPERATIVE W/CARE. SHE DOESN'T USE CALL LIGHT APPROPRIATELY SO BED/CHAIR ALARMS ARE ON FOR FALL RISK. PT ATTEMPTED BSC USE W/SBA BUT DIDN'T HAVE A BM THIS SHIFT, LINDQUIST IS PATENT/DRAINING. SHE'S ABLE TO SPECIFY SOME NEEDS, REQUESTING ICE WATER, TOILET ETC. VSS/AFEBRILE AND NO ACUTE CHANGES. WCTM AND REPORT TO DAY RN.
--- NOTE | 2020-09-26 17:24 | NUR ---
PT IS ALERT ORIENTED TO SELF ONLY, MINIMAL ASSIST UP TO THE CHAIR FOR MEALS TODAY, THE PT APPEARS TO BE BREATHING EASILY ON RA AT THIS TIME, THE PT WAS PLEASANT AND COOPERATIVE FOR MOST OF THE DAY, HOWEVER THIS AFTERNOON WHILE THE PTS MOTHER/STEP MOTHER? WAS VISITING THE PT WAS IRRITABLE AND WAS FIXATED ON SAYING THAT SHE WAS ALLERGIC TO EVERYTHING, THE PT DENIED ANY PAIN T/O THE DAY, CALL LIGHT IN REACH, BED ALARM ON WILL CONTINUE TO MONITOR AND ASSESS FOR CHANGES
[2020-09-26] MEDS ORDERED: AMPDEX30CR PO (23:10)
[2020-09-26] MEDS ORDERED: VENL75ER PO (23:11)
[2020-09-26] MEDS ORDERED: GABA300 PO (23:12)
--- NOTE | 2020-09-27 06:26 | NUR ---
SHIFT SUMMARY PT PLEASANTLY CONFUSED. SLEPT MOST OF THE NIGHT. PT ONLY ORIENTED TO SELF. PT CAN ANSWER SIMPLE YES OR NO QUESTIONS BUT WHEN ASKED WHERE SHE WAS AND WHAT THE DATE WAS, TO BOTH QUESTIONS SHE ANSWERED "[id number]" WHICH IS THE PATIENT'S BIRTHDAY. PT REMAINED IN BED THROUGHOUT THE NIGHT. LINDQUIST CATH PATENT AND DRAINING LIGHT YELLOW URINE. PT DENIES ANY PAIN. VITAL SIGNS STABLE. NO ACUTE CHANGES THIS EVENING. WILL CONTINUE TO MONITOR.
--- NOTE | 2020-09-27 18:17 | NUR ---
SHIFT SUMMARY- PT IS ALERT, PLESANT AND COOPERATIVE. SHE IS EATING AND DRINKING WELL. SHE IS CONFUSED, AND HE MENTATION IS STILL ALTERED FROM HER BASELINE BUT APPEARS TO BE IMPROVING ACCORDING TO HER MOTHER WHO VISITED HER TODAY. SHE REPORTED THAT HER DAUGHTER HAS NEVER HAD AN EPISODE LIKE THIS IN THE PAST. SHE WORKED WITH PT TODAY AND AMBULATED IN THE [place]. SHE WAS UP TO THE CHAIR THIS MORNING. SHE IS CURRENTLY IN BED IN THE LOW POSITION AND CALL LIGHT IS WITHIN REACH.
--- NOTE | 2020-09-28 03:35 | NUR ---
ACCOUNTING SUPPORT SPECIALIST SUMMARY PT A&O ONLY TO SELF, PLEASANTLY CONFUSED AND COOPERATIVE TO CARE. PT IS ABLE TO FOLLOW SIMPLE INSTRUCTIONS FROM STAFF. NO C/O PAIN OR ANY DISCOMFORT, DENIES CP, SOB, OR N&V. NO ACUTE CHANGES NOTED TO PT THIS SHIFT. CALM AND RESTED IN BED T/O SHIFT. BED AT LOWEST POSITION W/ ALARM ON FOR SAFETY, CALL LIGHT WITHIN REACH.
--- NOTE | 2020-09-28 17:40 | NUR ---
Spiritual care note: Flory appeared to be limited to one word answers. I helped her get comfortable in bed and sat with her for awhile offering small-talk. She appeared to enjoy companionship/encouragement. She allowed me to pray, but I think this was for my benefit. Regardless, we had an easy rapport and I will remain available.
--- NOTE | 2020-09-28 18:21 | NUR ---
PT WAS UP WITH PT/OT TODAY, SEE NOTES. NO ACUTE CHANGES NOTED THIS SHIFT, WILL CONTINUE TO MONITOR AND REPORT TO ONCOMING RN
--- NOTE | 2020-09-29 04:19 | NUR ---
AGGREGATE CONVEYOR OPERATOR SUMMARY PT A&O TO SELF ONLY. PLEASANTLY CONFUSED, EASILY REDIRECTABLE BY STAFF. NO ACUTE CHANGES NOTED TO PT THIS SHIFT. NO C/O PAIN OR ANY DISCOMFORT. PT 1P ASSIST W/ FWW. LINDQUIST PATENT AND DRAINING. BED AT LOWEST POSITION. CALL LIGHT WITHIN REACH.
--- NOTE | 2020-09-29 12:30 | NUR ---
LINDQUIST PT REPORTS THAT CATH IS BOTHERING HER, SHE IS TUGGING AND FIDDLING WITH IT. PT UP AND AMBULATING ONE ASSIST. LINDQUIST REMOVED. WILL MONITOR FOR FIRST VOID.
--- NOTE | 2020-09-29 18:34 | NUR ---
PT HAS BEEN VERY VERBAL TODAY, CALLING OUT FREQUENTLY, OVER AND OVER. AT TIMES EXHIBITING SOME YELLING AND AGITATION. SHE THREW ONE OF HER BOOKS OUT INTO THE HALLWAY AT ONE TIME. LINDQUIST CATH WAS DISCONTINUED AND SHE IS VOID WELL POST REMOVAL. WILL CONTINUE TO MONITOR AND REPORT TO ONCOMING RN.
--- NOTE | 2020-09-30 04:00 | NUR ---
PT. WAS FOUND BY NURSING STAFF WANDERING THE HALLWAY. PT. NOTED TO BE CONFUSED AND WEAK WITH UNSTEADY GAIT. ASSISTED BACK INTO ROOM AND BED BY NURSE. PT. STARTED SCREAMING "I'M CONFUSED" AND GETTING OOB ATTEMPTING TO GO OUT INTO THE HALLWAY. ATTEMPTED TO REORIENT PT. AND PROVIDE ASSURANCE OF SAFETY. ALSO OFFERED PO FLUIDS/SNACK. PT. REFUSED AND BECAME VERY AGITATED, CONTINUED TO TRY TO LEAVE THE ROOM. THIS NURSE AND BUSINESS OFFICE DIRECTOR CONCERNED WITH PT. SAFETY, CALLED FOR ADDITIONAL ASSISTANCE, NURSING STAFF ARRIVED TO THE ROOM. PT. AGREED TO RETURN TO BED, SAFELY ASSISTED BACK TO BED AGAIN BY NURSING STAFF. DISCUSSED WITH PT. STAYING IN ROOM AND CALLING NURSING STAFF FOR AMBULATORY ASSISTANCE OR FOR ANY OTHER NEEDS. PT. CONTINUED TO STATE "I'M CONFUSED" AND REFUSED TO STAY IN BED/ROOM. AGITATION CONTIUNED. NOTIFIED HOSPITALIST DR. GARCIA, RECEIVED ORDER FOR RESTRAINTS AND ATIVAN PRN. WHILE ATTEMPTING TO PLACE PT. IN RESTRAINT PT. STARTED KICKING, HITTING, AND SCREAMING. SECRUITY CALLED AND ARRIVED TO ROOM. DIANE VEST PUT ON PT. AND MEDICATED WITH ATIVAN PER EMAR. AFTERWARDS PT. REQUESTING TO SPEAK WITH HER MOM. DIALED MOM'S # USING ROOM PHONE. PT. SITTING UP IN BED SPEAKING WITH PARENT. NO APPARENT DISTRESS NOTED. WILL CONT TO MONITOR.
--- NOTE | 2020-09-30 19:21 | NUR ---
SHIFT SUMMARY PT IS AOX2, WITH FORGETFULNESS THIS MORNING AND EVENING. PT MORE ORIENTED MIDDAY. PT DENIES PAIN, N/V, SOB. PT IS ONE PERSON ASSIST IN ROOM. PT'S MOM VISITED TODAY. PT PLEASANT T/O SHIFT BUT IMPULSIVE. PT IS IN BED, ALARM ON, LOW POSITION.
--- NOTE | 2020-10-01 06:17 | NUR ---
SHIFT SUMMARY- PT. AGITATED AND IMPULSIVE AT THE BEGINNING OF THE SHIFT. ATTEMPTED SEVERAL TIMES TO REDIRECT, UNSUCCESSFUL. SCHEDULED LATUDA GIVEN W/O DIFFCULTY. AGITATION CONTINUED AND WORSEN DURING THE NIGHT. MEDICATED 1X WITH IM ZYPREXA PER EMAR AND PT. PLACED IN DIANE VEST RESTRAINT. NOTIFIED HOSPITALIST DR. GARCIA. PT. CALM AND ASLEEP THE REST OF THE NIGHT, DIANE VEST REMOVED AND ORDER DC'D. PT. INCONT OF BLADDER THIS SHIFT, ATTENDS IN PLACE. RESTING QUIETLY IN BED AT THIS TIME, NO APPARENT DISTRESS NOTED. VSS. CALL LIGHT WITHIN REACH, SIDE RAILS UPX2, AND BED ALARM ON FOR SAFETY. WILL CONT TO MONITOR.
--- NOTE | 2020-10-01 18:35 | NUR ---
SHIFT SUMMARY PT IS AO TO SELF AND FAMILY. PT MEDICATED FOR NAUSEA X1. PT DENIES PAIN, SOB. PT IS ONE PERSON ASSIST IN ROOM. PT IS IMPULSIVE AND BED ALARM IS ON. PT HAS GOOD APPETITE THIS [place] BUT POOR APPETITE EARLIER IN THE DAY. PT'S SON VISITED TODAY AND SPOKE WITH THE PHYSICIAN. PT IS IN BED, CALL LIGHT IN REACH, LOW POSITION WITH ALARM ON.
--- NOTE | 2020-10-02 06:11 | NUR ---
SHIFT SUMMARY- PT. HAD A RESTFUL NIGHT. APPEARED TO HAVE SLEPT COMFORTABLY T/O THE SHIFT. NO APPARENT DISTRESS NOTED. NO COMPLAINTS OF PAIN OR DISCOMFORT. SNACKS PROVIDED PER REQUEST, PT. HAS GOOD APPETITE. INCONT OF BLADDER, ATTENDS IN PLACE. VSS. CALL LIGHT WITHIN REACH, SIDE RAILS UPX2, AND BED ALARM ON FOR SAFETY. WILL CONT TO MONITOR.
--- NOTE | 2020-10-02 18:43 | NUR ---
PT RESTING IN BED AFTER DINNER AND VISIT WITH MOTHER. PT SLEPT THROUGH FAMILY VISIT. MOTHER WILL BE BACK TOMORROW 12-03-2020 FOR MEETING WITH . PT TOOK IV OUT THIS SHIFT AND ORDER FOR NO IV ACCESS WAS ALLOWED. PT REMAINS CONFUSED AND LABILE. BED IN LOW POSITION, ALARM ON, AND CALL LIGHT WITHIN REACH. STAFF WILL CONT. TO MONITOR FOR CHANGES.
--- NOTE | 2020-10-03 06:01 | NUR ---
SHIFT SUMMARY PATIENT ALERT AND ORIENTED X3, CONFUSED AND IMPULSIVE. WOULD OCCASIONALLY WANDER DOWN THE CASTRO. BED IN LOWEST POSITION WITH WHEELS LOCKED. CALL LIGHT WITHIN REACH. REPORT GIVEN TO ONCOMING RN.
--- NOTE | 2020-10-03 18:00 | NUR ---
SHIFT SUMMARY PT HAS BEEN UP MANY TIMES THROUGH OUT THE SHIFT. PT EASILY DIRECTED. PT MORE ORIENTED THIS AFTERNOON. PT DRINKIN AND EATING WITHOUT DIFFICULTY. PT HAS BEEN C/O HEADACHE. TYLENOL ADMINISTERED PER EMAR/DR ORDERS. MEDICATED FOR NAUSEA THIS AM. FAMILY AT BEDSIDE THIS AFTERNOON. NO ACUTE CHANGES. WAITING FOR PLACEMENT. CALL LIGHT IN REACH. BED ALARM ON FOR SAFETY.
--- NOTE | 2020-10-04 01:04 | NUR ---
AGGITATION/ANXIETY: PATIENT IS RESTLESS, HAS REMOVED GOWNED AND IS LAYING CONTINUOSLY RUBBING HER PILLOW. PRN LURASIDONE IS GIVEN.
--- NOTE | 2020-10-04 02:46 | NUR ---
CARDIAC/ANXIETY: HEART RATE IS IN THE 130'S, VIEWS SCORE IS 3. PATIENT IS LAYING IN BED BUT HAS BEEN UP AND DOWN ALL NIGHT. LATUDA WAS GIVEN WITH POOR EFFECT AT 0100. DR SIMON IS CALLED AND ORDER FOR ATIVAN IV X1 NOW.
--- NOTE | 2020-10-04 04:32 | NUR ---
CARDIAC: ATIVAN WAS GIVEN WITH FAIR GOOD EFFECT ON ANXIETY. HEART RATE REMAINS THE SAME, 130'S. PATIENT CONTINUES TO REPORT NO CHEST PAIN. PATIENT IS SLEEPING AND NO LONGER RESTLESS..
--- NOTE | 2020-10-04 05:50 | NUR ---
SHIFT SUMMARY: PATIENT HAS HAD ELEVATED HR SINCE 0100 IN THE 130'S. IV ATIVAN WAS GIVEN WITH POOR EFFECT FOR HR BUT PATIENT RESTED WELL, NO REPORT OF CHEST PAIN. DR SIMON WAS CALLED AGAIN ORDER FOR TELI AND IV LOPRESSOR X2 15 MIN. APART WAS OBTAINED. HR WAS 142 A TIME OF FIRST DOSE. AFTER 10 MIN. HR IS DOWN TO 119.
--- NOTE | 2020-10-04 17:46 | NUR ---
SUMMARY- PT ALERT TO SELF, PLACE AND FAMILY. PT HAD A FEVER OF 103 THIS AM. GAVE TYLENOL AND HYDROXAZINE FOR ANXIETY. HR WAS 124- PT GOING TO THE BATHROOM AND FREQ NOT ABLE TO VOID. MOM STATED PT RECENT UTI WITH ABX. WHEN PT FINALLY VOIDED IT WAS VERY CLOUDY AND CONCENTRATED. IMMIDATELY BEGAN PUSHING ORAL FLUIDS. NOTIFIED DR DENSON, ORDER FOR UA AND TO START ANTIBIOTICS ONCE UA OBTAINED. PT HAD ONE INCONTINANCE AND WAS UNABLE TO GET UA. PT THAN WENT IN TOILET AND MISSED THE HAT. CALLED DR DENSON A 2ND TIME AROUND 1530 WITH HR ELEVATED TO 145. ORDER FOR BOLUS OF REMAINING LITER AND AN ADDIDTIONAL LITER. TEMP ELEVATED AGAIN WELL. GAVE TYLENOL AND VISTARIL AGAIN. CALLED AND GOT ORDER FOR ST CATH. SENT UA AND STARTED CEFTRIXONE 1GM BY 1730. PT TOLERATING DIET. CHANGED TO ADA PT WAS ORDERING FROM A GENERAL DIET AND GETTING ICE CREAM SUGAR AND PUDDINGS. SUGARS HIGH IN 200'S. COVERED WITH SSI. WILL NOTIFY ONCOMING RN.
[2020-10-04 18:12] LABS: Source, Urine Catheter
[2020-10-04 18:20] LABS: Appearance, Urine Cloudy (Clear); Bilirubin, Urine Neg (Neg); Blood, Urine 4+ (Neg); Color, Urine Yellow (P-Yellow); Glucose Qualitative, Urine Neg (Neg); Ketones, Urine Neg (Neg); Leukocyte Esterase, Urine 3+ (Neg); Nitrite, Urine Neg (Neg); Protein, Urine 3+ (Neg); Urobilinogen, Urine NORM (Normal)
[2020-10-04 18:42] LABS: Bacteria Many /hpf; Squamous Epithelial Cells Not Seen /hpf (Few); White Blood Cells, Urine TNTC /hpf (0-5)
--- NOTE | 2020-10-05 05:31 | NUR ---
SHIFT SUMMARY PT HAS BEEN TACHY T/O SHIFT (120'S-130'S, HIGH 150 WHEN UP TO BR), TEMP 101.8 AT SHIFT START (REDUCED W/TYLENOL 98.5), NOTIFIED, LABS & FLUID BOLUS ORDERED, TEMP AGAIN ELEVATED THIS AM (100.8) TYLENOL ADMIN, SLEPT T/O THE NIGHT & AT THIS TIME, CALL LIGHT IN REACH, BED ALARM ACTIVE, WILL CONT TO MONITOR UNTIL REPORT GIVEN TO DAY RN.
--- NOTE | 2020-10-05 19:45 | NUR ---
SHIFT SUMMARY PT SLEPT MOST OF THE DAY. MEDICATED FOR HEADACHE X2 TODAY. IVF INFUSING WITHOUT DIFFICULTY. PT MORE AWAKE THIS EVENING AND GETTING OUT OF BED CONSTANTLY NOW. PT'S HEART RATE CONTINUES TO BE ELEVATED. LACTIC ACID WNL. NO DISTRESS AT THIS TIME. CALL LIGHT IN REACH. WILL REPORT TO ONCOMING RN.
[2020-10-06 05:12] LABS: BASOPHILS ABSOLUTE AUTO 0.06 K/mm3 (0.00-0.23); BASOPHILS PERCENT AUTO 1 % (0-2); Hematocrit 30.2 % (33.0-51.0); Hemoglobin 10.6 g/dL (11.5-16.0); LYMPHOCYTES ABSOLUTE AUTO 0.54 K/mm3 (0.84-5.20); LYMPHOCYTES PERCENT AUTO 4 % (21-46); MONOCYTES ABSOLUTE AUTO 0.62 K/mm3 (0.16-1.47); MONOCYTES PERCENT AUTO 5 % (4-13); Mean Corpuscular HGB 31.7 pg (26.0-34.0); Mean Corpuscular HGB Conc 35.1 g/dL (31.5-36.5); Mean Corpuscular Volume 90 fL (80-100); Mean Platelet Volume 10.7 fL (9.1-12.4); Platelet Count 170 K/mm3 (150-400); RDW Coefficient Variation 12.9 % (11.7-14.2); RDW Standard Deviation 42.9 fL (35.1-46.3); Red Blood Cell Count 3.34 M/mm3 (3.80-5.20); White Blood Cell Count 13.14 K/mm3 (4.00-11.30)
[2020-10-06 05:36] LABS: Albumin, Blood 1.8 g/dL (3.4-5.0); Anion Gap 6 mmol/L (6-16); Blood Urea Nitrogen 32 mg/dL (8-24); CO2, Blood 26 mmol/L (21-32); Calcium, Blood 8.5 mg/dL (8.5-10.1); Chloride, Blood 107 mmol/L (98-108); Glomerular Filtration Rate 36 (60-); Glucose, Blood 134 mg/dL (70-99); Magnesium, Blood 1.9 mg/dL (1.6-2.4); Phosphorus, Blood 2.7 mg/dL (2.5-4.9); Sodium, Blood 139 mmol/L (136-145)
[2020-10-06 05:46] LABS: EOSINOPHILS ABSOLUTE AUTO 0.02 K/mm3 (0.00-0.68); EOSINOPHILS PERCENT AUTO 0 % (0-6); IMMATURE GRAN ABSOLUTE AUTO 0.09 K/mm3 (0.00-0.10); IMMATURE GRAN PERCENT AUTO 1 % (0-1); NEUTROPHILS ABSOLUTE AUTO 11.81 K/mm3 (1.96-9.15); NEUTROPHILS PERCENT AUTO 90 % (41-73)
--- NOTE | 2020-10-06 06:02 | NUR ---
SHIFT SUMMARY PT QUITE IRRITABLE AT START OF SHIFT, CONTINUALLY SETTING OFF BED ALARM AND REFUSING TO FOLLOW STAFF DIRECTIONS, DEMANDING TO BE UP INDEP & ARGUING W/STAFF, BEHAVIOR DID FINALLY IMPROVE ABOUT MIDNIGHT, AT THIS TIME PT STATED "I DON'T FEEL VERY WELL"; MEDICATED 2X FOR FEVER (101.3 AT HIGHEST TONIGHT), LAST TEMP CK WAS 99.1 @ 0515, PT WAS AWAKE EATING SNACK AND DRINKING WATER. UP TO BR MULTIPLE TIMES T/O THE NIGHT, INCONT MANY TIMES, SLEEPING AT THIS TIME, CALL LIGHT IN REACH, BED ALARM ACTIVE, WILL CONT TO MONITOR UNTIL REPORT GIVEN TO DAY RN.
--- NOTE | 2020-10-06 11:36 | NUR ---
PT TEMP UP. TYLENOL ADMIN THIS AM. RECHECK AT 100.9. VSS. HOWEVER PT 02 AT 89 ALL FINGERS CHECKED. PLACED ON 1L O2 N/C. NOW AT 94 % CALLED DR CHAMPION. HE TO REVIEW. NO ORDERS AT THIS MOMENT.
--- NOTE | 2020-10-06 11:56 | NUR ---
1100 PT QUITE SLEEPY. BUT DOES AWAKEN. O2 WAS PLACED, DR NOTIFIED. ASKED PT IF HAD TAKEN ANYTHING, ALTHOUGH MOTHER AT BEDSIDE. SHE DENIES. MOTHER SOMEWHAT OFFENDED. EXPLAINED IS GOOD TO ASK, NOT TO BE OFFENDED, STATES UNDERSTANDS.
--- NOTE | 2020-10-06 13:02 | NUR ---
PT RESTING, EYES CLOSED, RESP EASY, UNLBORED. ON 1L AT THIS TIME. DOES AWAKEN WNEN LIGHT STERNAL RUB. DENIES PAIN, O2 SATS AT 96% 1L. REMOVED O2. O2 HOLDING 94-95% WILL CONTINUE TO MONITOR
--- NOTE | 2020-10-06 14:26 | NUR ---
1300 PT AWAKE, ATE SOME LUNCH. GOT UP FROM BED . ASSISTED TO BATHROOM. NO NEW CONCERNS. BED IN LOW POSITION, CALL LITE IN REACH, CALLS APPROP
--- NOTE | 2020-10-06 16:25 | NUR ---
PT C/O HEADACHE. TYLENOL ADMIN
--- NOTE | 2020-10-06 17:38 | NUR ---
PT HAS PERIODS OF BEING AWAKE BUT IS SOMEWHAT SLOW TO RESPOND. THEN PERIODS OF QUITE DEEP SLEEP. LIGHT STERNAL RUB BRINGS AWAKE, BUT WANTS TO GO BACK TO SLEEP. PT IMPROVING THIS AFTEROON. HAS BEEN WALKING TO BATHROOM 1 LITE ASST. AT LEAST 3 TIMES TODAY FOR ME. NO NEW CONCERNS NOTED THIS AFT. MOTHER IN MUCH OF DAY TODAY. BED IN LOW POSITION, CALL LITE IN REACH, BED ALARM ON FOR SAFETY
--- NOTE | 2020-10-07 05:57 | NUR ---
SUMMARY NO NEW ISSUES NOTED. PT HAS BEEN COOPERATIVE W/ CARE. PT ABLE TO ANSWER SIMPLE QUESTIONS. PT TALKS VERY LOW AND QUIET. PT HAS BEEN VOIDING VERY WELL. PT STILL REQUIRES BED ALARM AND HELP W/ IV POLE. PT DOES USE CALL LIGHT TO MAKE NEEDS KNOWN. PT HAS BEEN SLEEPING FOR MOST OF SHIFT. PT IS EASILY AROUSABLE. PT CURRENTLY SLEEPING IN NO DISTRESS.
--- NOTE | 2020-10-07 11:34 | NUR ---
PATIENT HAVING FREQUENT DIARRHEA, INCONTINENT AT TIMES. NOTIFIED DR. CHAMPION BY PHONE. RECEIVED ORDER FOR PROBIOTIC AND LABS FOR TOMORROW MORNING.
--- NOTE | 2020-10-07 19:19 | NUR ---
SHIFT SUMMARY: NO ACUTE EVENTS. DIARRHEA HAS SLOWED SLIGHTLY, TOTAL OF 4 BM'S DOCUMENTED. NO EVENTS ON TELEMETRY, ST 110'S. MODERATE APPETITE, TOLERATING PO. GETTING UP TO CHAIR AND BR WITH ASSISTANCE, FORGETS IV POLE. C/O HEADACHE, MEDICATED WITH TYLENOL WITH RELIEF. PT'S MOTHER VISITED TODAY.
--- NOTE | 2020-10-08 03:46 | NUR ---
SUMMARY NO NEW ISSUES. PT SLEPT FOR MOST OF SHIFT. PT HAS BEEN GETTING UP FREQUENTLY TO VOID. PT CURRENTLY AWAKE AND IN NO DISTRESS. PT CALL LIGHT IN REACH AND BED ALARM ON.
[2020-10-08 05:32] LABS: Anion Gap 9 mmol/L (6-16); Blood Urea Nitrogen 23 mg/dL (8-24); Bun/Creatinine Ratio 26.6 (12.0-20.0); CO2, Blood 26 mmol/L (21-32); Calcium, Blood 8.5 mg/dL (8.5-10.1); Chloride, Blood 107 mmol/L (98-108); Creatinine, Blood 0.87 mg/dL (0.40-1.00); Glomerular Filtration Rate >60 (60-); Glucose, Blood 126 mg/dL (70-99); Potassium, Blood 3.4 mmol/L (3.5-5.5); Sodium, Blood 142 mmol/L (136-145)
--- NOTE | 2020-10-08 16:48 | NUR ---
SHIFT SUMMARY PT TOLERATING PO FLUIDS & INTAKE WELL. IV FLUIDS DCED TODAY. TELE ALSO DC'ED. PT HR INCREASES TO THE 110S WITH ACTIVITY BUT RETURNS TO THE 80-100S AT REST. PT MOTHER IN TO SEE PT TODAY. PTS MOTHER HELPS WITH DECISION MAKING THE PT IS UNABLE TO COMPLETE THESE TASKS ON HER OWN. BED ALARM IN PLACE PT IS IMPULSIVE AND CAN BE UNSTEADY. PT VERY FORGETFUL. INCLUDING FORGETING IS SHE ATE BREAKFAST ONE HOUR AFTER DOING SO. NO ACUTE CHANGES IN ASSESSMENT AT THIS TIME. VS REVIEWED. PT RESTING IN BED AT THIS TIME. CALL LIGHT IN REACH. ALARM SET.
--- NOTE | 2020-10-09 04:39 | NUR ---
SUMMARY PT HAD NO NEW ISSUES NOTED. PT HAS BEEN SLEEPING FOR MOST OF SHIFT. PT HAS BEEN VOIDING WELL T/O SHIFT. PT CURRENTLY SLEEPING AND BREATHING EASY CALL LIGHT IN REACH.
--- NOTE | 2020-10-09 17:25 | NUR ---
SHIFT SUMMARY PT AOX3, CONFUSED AT TIMES. PT LIKES TO WANDER SOMETIMES. BED ALARM AND CHAIR ALARM HAS TO BE ON. PT HARD TO UNDERSTAND AT TIMES AND LETHARGIC. PT C.O MIGRAINES AND MEDICATED X1. DENIES ANY DISTRESS OR SOB. BED IS IN THE LOWEST POSITION AND CALL LIGHT WITHIN REACH
--- NOTE | 2020-10-10 05:33 | NUR ---
R DEVELOPER SUMMARY NO ACUTE CHANGES THIS SHIFT. PT AAOX2-3 AND INDEPENDENT IN ROOM. CAN ANSWER MOST YES NO QUESTIONS AND SOME SHORT SENTENCE ANSWERS BUT IS VERY SLOW TO RESPOND. MEDICATED FOR PAIN X1 WITH TYELNOL. PT HAS TAKEN 2 SHOWERS TONIGHT PER PT REQUEST, PT IS INDEPENDENT IN HER ROOM. VSS, WILL CONTINUE TO MONITOR.
--- NOTE | 2020-10-10 17:25 | NUR ---
SHIFT SUMMARY- PT A/O X2. PT MEDICATED X1 WITH TYLENOL FOR HEADACHE. PT SLOW TO RESPOND AND OFTEN ANSWERS WITH A WHISPERED SPEECH THAT IS DIFFICULT TO UNDERSTAND. PT UP INDEP IN ROOM. LS CLEAR, ON RA. HRR. NO IV ACCESS. PER DAUGHTER PT BECAME COMBATIVE WHILE WALKING THE HALLS SHE WANTED TO LEAVE. PT HAS BEEN PLEASANT AND COOPERATIVE WITH STAFF. INCONT AT TIMES. PT CONTINUES TO AWAIT PLACEMENT. NO OTHER ACUTE CHANGES THIS SHIFT.
--- NOTE | 2020-10-10 18:44 | NUR ---
DR FULLER IN TO SEE PT, PER DR FULLER HE WILL SPEAK WITH DR AGUILLON ABOUT PLACING PEG TUBE.
--- NOTE | 2020-10-11 07:07 | NUR ---
ASSUMED CARE OF PT- BEDSIDE REPORT COMPLETED WITH NIGHT RN MARIA R. PER REPORT PT IS MEDICALLY STABLE ON ROOM AIR, NO IV ACCESS NEEDED. PT CURRENTLY AWAITING PLACEMENT. PT IS INDEPENDENT IN THE ROOM, IS CONFUSED AND HAS HAD EPISODES OF WANDERING. PT IN BED CURRENTLY SLEEPING WITH NO S&S OF DISTRESS NOTED AT THIS TIME. CALL LIGHT IN REACH.
--- NOTE | 2020-10-11 08:08 | NUR ---
SHIFT SUMMARY PT IS A 50 Y/O FEMALE, ADMITTED FOR ACUTE ENCEPHALOPATHY AFTER OD. SHE IS A&O X 2, INDEPENDENT IN THE ROOM. PT WAS MEDICATED ONCE AT HS FOR A GAN WITH PRN TYLENOL. NO C/O NAUSEA OR SOB. VITAL SIGNS STABLE. PT SLEPT WELL THROUGH THE NIGHT. NO ACUTE CHANGES IN PT CONDITION NOTED. REPORT GIVEN TO ONCOMING RN.
--- NOTE | 2020-10-11 18:55 | NUR ---
SHIFT SUMMARY- PT ALERT TO SELF AND FAMILY. PT VERY FLAT AFFECT. AMBULATING INDEPENDENTLY IN THE HALLS T/O THE DAY. AT ONE POINT SHE ASKED FOR HER ANXIETY MEDICATION BY NAME. SHE HAS BEEN VERY COOPERATIVE WITH CARE, SHE DECLINED HER LOVENOX INJECTION THIS MORNING DR VASQUEZ IS AWARE. PT RECIEVED PRN ANXIETY PER REQUEST. PT CURRENTLY IN HER ROOM SHE USES THE CALL LIGHT FREQUENTLY. PT HAS NO S&S OF DISTRESS NOTED AT THIS TIME WILL PASS ON TO NIGHT RN.
--- NOTE | 2020-10-12 04:29 | NUR ---
HEALTH PSYCHOLOGIST SUMMARY PT A&O TO SELF AND FAMILY, PLEASANT AND COOPERATIVE TO CARE. ABLE TO FOLLOW SIMPLE INSTRUCTIONS FROM STAFF. INDEPENDENT IN THE ROOM. NO C/O PAIN OR ANY DISCOMFORT. PT HAD EPISODES OF INCONTINENCE THIS SHIFT, DENIES DYSURIA. PT CALM AND RESTED IN BED AT THIS TIME. BED AT LOWEST POSITION. CALL LIGHT WITHIN REACH.
[2020-10-12 08:44] LABS: Albumin, Blood 2.3 g/dL (3.4-5.0); Anion Gap 4 mmol/L (6-16); Blood Urea Nitrogen 13 mg/dL (8-24); Bun/Creatinine Ratio 17.7 (12.0-20.0); CO2, Blood 30 mmol/L (21-32); Calcium, Blood 8.8 mg/dL (8.5-10.1); Chloride, Blood 108 mmol/L (98-108); Creatinine, Blood 0.73 mg/dL (0.40-1.00); Glomerular Filtration Rate >60 (60-); Glucose, Blood 119 mg/dL (70-99); Phosphorus, Blood 3.7 mg/dL (2.5-4.9); Potassium, Blood 4.1 mmol/L (3.5-5.5); Sodium, Blood 142 mmol/L (136-145)
[2020-10-12] MEDS ORDERED: HYDPAM50 PO ×2 (14:46)
[2020-10-12 15:19] LABS: Influenza A, PCR NEGATIVE (NEGATIVE); Influenza B, PCR NEGATIVE (NEGATIVE); Resp Syncytial Virus, PCR NEGATIVE (NEGATIVE); SARS-Cov-2 (COVID-19) PCR, MMC NEGATIVE (NEGATIVE)
[2020-10-12] MEDS ORDERED: GLIP5 PO (16:20)
--- NOTE | 2020-10-12 17:16 | NUR ---
PT MOTHER PRESENT FOR DISCHARGE TEACHING. VERBAL AND WRITTEN DISCHARGE INSTRUCTIONS PROVIDED TO THE PT MOTHER. CALLED DR VASQUEZ WITH THE PT MED REQUEST. DISCHARGE MEDICATIONS EDITED AND NEW MEDS FAXED TO PHARMACY. PT VERY ANXIOUS TO GET OUT OF HERE, DECLINED WC ESCORT AND WALKED OUT WITH HER MOTHER, NO FURTHER QUESTIONS AT THE TIME OF DISCHARGE. MEDS FA[facility]ED TO [facility] ON [address] PER PT FAMILY REQUEST.
[2020-10-16] MEDS ORDERED: VENL75ER PO (16:39)
[2020-10-16] MEDS ORDERED: HYDPAM50 PO (23:22)
[2020-10-16] MEDS ORDERED: OMEP20ER PO (23:23)
== END 2020-10-12 16:24 | disposition home health service (06) | DRG 885 ==
LOC: ER 00:09 → PCU 02:33 → ICUW 02:33 → MEDS 02:33 → ICUW 02:37 → PCU 16:28 → MEDS 09-24 09:27
PROVIDERS: Emergency Medicine; Family Medicine; Hospitalist; Internal Medicine; ADMIT Internal Medicine
DX: F20.2 Catatonic schizophrenia (principal); A41.51 Sepsis due to Escherichia coli [E. coli]; R65.20 Severe sepsis without septic shock; G93.40 Encephalopathy, unspecified; N17.9 Acute kidney failure, unspecified; N39.0 Urinary tract infection, site not specified; J45.909 Unspecified asthma, uncomplicated; G43.909 Migraine, unspecified, not intractable, without status migrainosus; E11.9 Type 2 diabetes mellitus without complications; F32.9 Major depressive disorder, single episode, unspecified; R09.02 Hypoxemia; G25.81 Restless legs syndrome; E66.9 Obesity, unspecified; F41.9 Anxiety disorder, unspecified; F17.210 Nicotine dependence, cigarettes, uncomplicated; Z68.27 Body mass index [BMI] 27.0-27.9, adult; Z98.890 Other specified postprocedural states; Z98.51 Tubal ligation status; Z88.5 Allergy status to narcotic agent; Z88.8 Allergy status to other drugs, medicaments and biological substances; Z79.899 Other long term (current) drug therapy
CPT/HCPCS: 0241U; 36415; 36600; 51703; 70450; 70551; 71045; 80048; 80053; 80069; 81001; 81003; 81025; 82272; 82803; 82947; 83036; 83605; 83735; 84439; 84443; 85014; 85018; 85025; 87040; 87077; 87086; 87186; 92507; 92523; 92610; 93005; 93010; 96374; 97110; 97112; 97116; 97129-GO-CO; 97161; 97165; 97530; 97535; 99285-25; A9270; G0480; J0696; J1650; J2060; J2405; J7030; J7042; J7120

== ENCOUNTER 2021-02-16 13:27 | Observation (INO) | payer OTHER ==
[~2021-02-16] VITALS: Ht 162.6 cm; Wt 90.7 kg
[~2021-02-16 13:27] MED LIST changes: +AMPDEX30CR PO; +VENL75ER PO
[2021-02-16] MEDS ORDERED: GLIP2.5ER PO (14:35)
[2021-02-16 15:40] LABS: BASOPHILS ABSOLUTE AUTO 0.05 K/mm3 (0.00-0.23); BASOPHILS PERCENT AUTO 1 % (0-2); EOSINOPHILS PERCENT AUTO 1 % (0-6); Hematocrit 43.9 % (33.0-51.0); Hemoglobin 14.6 g/dL (11.5-16.0); IMMATURE GRAN ABSOLUTE AUTO 0.04 K/mm3 (0.00-0.10); IMMATURE GRAN PERCENT AUTO 1 % (0-1); LYMPHOCYTES ABSOLUTE AUTO 2.85 K/mm3 (0.84-5.20); LYMPHOCYTES PERCENT AUTO 33 % (21-46); MONOCYTES PERCENT AUTO 9 % (4-13); Mean Corpuscular HGB 29.9 pg (26.0-34.0); Mean Corpuscular HGB Conc 33.3 g/dL (31.5-36.5); Mean Corpuscular Volume 90 fL (80-100); Mean Platelet Volume 9.9 fL (9.1-12.4); NEUTROPHILS ABSOLUTE AUTO 4.81 K/mm3 (1.96-9.15); NEUTROPHILS PERCENT AUTO 56 % (41-73); Platelet Count 365 K/mm3 (150-400); RDW Standard Deviation 39.4 fL (35.1-46.3); Red Blood Cell Count 4.88 M/mm3 (3.80-5.20); White Blood Cell Count 8.65 K/mm3 (4.00-11.30)
[2021-02-16 16:02] LABS: Alanine Aminotransfer (ALT/SGP 26 U/L (12-78); Albumin, Blood 3.8 g/dL (3.4-5.0); Albumin/Globulin Ratio 0.9 (0.8-1.8); Alk Phos 86 U/L (50-136); Anion Gap 2 mmol/L (6-16); Aspartate Aminotrans (AST/SGOT 18 U/L (12-37); Bilirubin, Total 0.4 mg/dL (0.1-1.0); Blood Urea Nitrogen 16 mg/dL (8-24); Bun/Creatinine Ratio 22.3 (12.0-20.0); CO2, Blood 30 mmol/L (21-32); Calcium, Blood 9.2 mg/dL (8.5-10.1); Chloride, Blood 106 mmol/L (98-108); Creatinine, Blood 0.72 mg/dL (0.40-1.00); Ethanol (Alcohol), Blood, Med 5 mg/dL; Globulin, Blood 4.4 g/dL (2.2-4.0); Glomerular Filtration Rate >60 (60-); Glucose, Blood 81 mg/dL (70-99); Potassium, Blood 3.9 mmol/L (3.5-5.5); Salicylate <1.7 mg/dL (2.8-20.0); Sodium, Blood 138 mmol/L (136-145); Total Protein, Blood 8.2 g/dL (6.4-8.2)
[2021-02-16 16:11] LABS: Acetaminophen, Random <2.0 ug/mL (10.0-30.0)
[2021-02-16 17:28] LABS: Source, Urine Clean Catch
[2021-02-16 17:43] LABS: Appearance, Urine Clear (Clear); Bilirubin, Urine Neg (Neg); Blood, Urine Neg (Neg); Color, Urine Yellow (P-Yellow); Glucose Qualitative, Urine Neg (Neg); Ketones, Urine Neg (Neg); Leukocyte Esterase, Urine Neg (Neg); Nitrite, Urine Neg (Neg); Protein, Urine Neg (Neg); Specific Gravity, Urine 1.015 (1.003-1.022); Urobilinogen, Urine NORM (Normal)
[2021-02-16 18:00] LABS: U Amphetamine Screen Not Detected; U Barbituate Screen Not Detected; U Benzodiazapine Screen Not Detected; U Buprenorphine Screen Not Detected; U Cannabinoids Screen Not Detected; U Cocaine Screen Not Detected; U Methadone Screen Not Detected; U Methamphetamine Screen Not Detected; U Opiates Screen Not Detected; U Oxycodone Screen Not Detected; U Phencyclidine Screen Not Detected; U Propoxyphene Screen Not Detected
[2021-02-16 18:48] LABS: SARS-Cov-2 (COVID-19) PCR, MMC NEGATIVE (NEGATIVE)
== END 2021-02-19 17:30 | disposition home or self-care (01) ==
LOC: ER 13:27 → EOR 13:28
PROVIDERS: Physician Assistant; ADMIT Emergency Medicine
DX: F31.81 Bipolar II disorder (principal); F03.91 Unspecified dementia, unspecified severity, with behavioral disturbance; F43.9 Reaction to severe stress, unspecified; J45.909 Unspecified asthma, uncomplicated; E11.9 Type 2 diabetes mellitus without complications; K21.9 Gastro-esophageal reflux disease without esophagitis; Z20.822 Contact with and (suspected) exposure to COVID-19; Z87.820 Personal history of traumatic brain injury; Z91.5 Personal history of self-harm; Z79.84 Long term (current) use of oral hypoglycemic drugs; Z88.8 Allergy status to other drugs, medicaments and biological substances; Z88.5 Allergy status to narcotic agent
CPT/HCPCS: 36415; 80053; 81003; 81025; 82947; 85025; 99285; A9270; G0378; G0480; Q3014; U0004

== ENCOUNTER 2021-04-10 09:42 | Observation (INO) | payer OTHER ==
[~2021-04-10] VITALS: Ht 165.1 cm; Wt 94.8 kg
[~2021-04-10 09:42] MED LIST changes: +GLIP2.5ER PO
[2021-04-10 11:23] LABS: Source, Urine Clean Catch
[2021-04-10 11:28] LABS: BASOPHILS ABSOLUTE AUTO 0.05 K/mm3 (0.00-0.23); BASOPHILS PERCENT AUTO 1 % (0-2); EOSINOPHILS ABSOLUTE AUTO 0.08 K/mm3 (0.00-0.68); EOSINOPHILS PERCENT AUTO 1 % (0-6); Hematocrit 42.5 % (33.0-51.0); Hemoglobin 14.1 g/dL (11.5-16.0); IMMATURE GRAN ABSOLUTE AUTO 0.03 K/mm3 (0.00-0.10); IMMATURE GRAN PERCENT AUTO 0 % (0-1); LYMPHOCYTES ABSOLUTE AUTO 2.44 K/mm3 (0.84-5.20); LYMPHOCYTES PERCENT AUTO 26 % (21-46); MONOCYTES ABSOLUTE AUTO 0.91 K/mm3 (0.16-1.47); MONOCYTES PERCENT AUTO 10 % (4-13); Mean Corpuscular HGB 29.9 pg (26.0-34.0); Mean Corpuscular HGB Conc 33.2 g/dL (31.5-36.5); Mean Corpuscular Volume 90 fL (80-100); Mean Platelet Volume 10.7 fL (9.1-12.4); NEUTROPHILS ABSOLUTE AUTO 5.83 K/mm3 (1.96-9.15); NEUTROPHILS PERCENT AUTO 63 % (41-73); Platelet Count 337 K/mm3 (150-400); RDW Coefficient Variation 12.9 % (11.7-14.2); RDW Standard Deviation 42.5 fL (35.1-46.3); Red Blood Cell Count 4.71 M/mm3 (3.80-5.20); White Blood Cell Count 9.34 K/mm3 (4.00-11.30)
[2021-04-10 11:35] LABS: Appearance, Urine Clear (Clear); Bilirubin, Urine Neg (Neg); Blood, Urine Neg (Neg); Color, Urine Yellow (P-Yellow); Glucose Qualitative, Urine Neg (Neg); Ketones, Urine Neg (Neg); Leukocyte Esterase, Urine Neg (Neg); Nitrite, Urine Neg (Neg); Protein, Urine Neg (Neg); Urobilinogen, Urine NORM (Normal)
[2021-04-10 11:51] LABS: Alanine Aminotransfer (ALT/SGP 50 U/L (12-78); Albumin, Blood 4.1 g/dL (3.4-5.0); Alk Phos 91 U/L (50-136); Anion Gap 6 mmol/L (6-16); Aspartate Aminotrans (AST/SGOT 60 U/L (12-37); Blood Urea Nitrogen 9 mg/dL (8-24); Bun/Creatinine Ratio 11.2 (12.0-20.0); CO2, Blood 29 mmol/L (21-32); Calcium, Blood 9.1 mg/dL (8.5-10.1); Chloride, Blood 104 mmol/L (98-108); Ethanol (Alcohol), Blood, Med <3 mg/dL; Globulin, Blood 4.2 g/dL (2.2-4.0); Glomerular Filtration Rate >60 (60-); Glucose, Blood 74 mg/dL (70-99); Potassium, Blood 3.7 mmol/L (3.5-5.5); Salicylate <1.7 mg/dL (2.8-20.0); Sodium, Blood 139 mmol/L (136-145); Total Protein, Blood 8.3 g/dL (6.4-8.2)
[2021-04-10 11:58] LABS: Acetaminophen, Random <2.0 ug/mL (10.0-30.0)
[2021-04-10] MEDS ORDERED: ESCI10 PO ×2 (12:07→19:01)
[2021-04-10] MEDS ORDERED: ZESTRIL40 M2 PO (12:08)
[2021-04-10] MEDS ORDERED: QUETIAPINE FUM PO (12:09)
[2021-04-10] MEDS ORDERED: AMLODIPINE BESYL5 MG PO (12:09)
[2021-04-10 12:10] LABS: U Amphetamine Screen DETECTED; U Barbituate Screen Not Detected; U Benzodiazapine Screen DETECTED; U Buprenorphine Screen Not Detected; U Cannabinoids Screen Not Detected; U Cocaine Screen Not Detected; U Methadone Screen Not Detected; U Methamphetamine Screen DETECTED; U Opiates Screen Not Detected; U Oxycodone Screen Not Detected; U Phencyclidine Screen Not Detected; U Propoxyphene Screen Not Detected
[2021-04-10 17:09] LABS: SARS-Cov-2 (COVID-19) PCR, MMC NEGATIVE (NEGATIVE)
[2021-04-10] MEDS ORDERED: Ritalin10 MG PO (21:08)
[2021-04-10] MEDS ORDERED: QUETIAPINE FUMA25 MG PO (21:09)
[2021-04-11] MEDS ORDERED: AMLO5 PO (09:46)
== END 2021-04-11 14:40 | disposition home or self-care (01) ==
LOC: ER 09:42 → EOR 09:43
PROVIDERS: Physician Assistant; ADMIT Emergency Medicine
DX: F31.81 Bipolar II disorder (principal); J45.909 Unspecified asthma, uncomplicated; E11.9 Type 2 diabetes mellitus without complications; Z88.8 Allergy status to other drugs, medicaments and biological substances; Z88.5 Allergy status to narcotic agent; Z79.84 Long term (current) use of oral hypoglycemic drugs; Z79.899 Other long term (current) drug therapy; Z20.822 Contact with and (suspected) exposure to COVID-19
CPT/HCPCS: 36415; 80053; 81003; 81025; 85025; 99285; A9270; G0378; G0480; Q3014; U0004

== ENCOUNTER 2021-04-30 12:19 | Observation (INO) | payer OTHER ==
[~2021-04-30] VITALS: Ht 162.6 cm; Wt 95.7 kg
[~2021-04-30 12:19] MED LIST changes: +AMLODIPINE BESYL5 MG PO; +ESCI10 PO; +QUETIAPINE FUM PO; +QUETIAPINE FUMA25 MG PO; +Ritalin10 MG PO; +ZESTRIL40 M2 PO
[2021-04-30 13:38] LABS: Source, Urine Clean Catch
[2021-04-30 13:50] LABS: BASOPHILS ABSOLUTE AUTO 0.04 K/mm3 (0.00-0.23); BASOPHILS PERCENT AUTO 1 % (0-2); EOSINOPHILS PERCENT AUTO 1 % (0-6); Hematocrit 38.4 % (33.0-51.0); Hemoglobin 12.7 g/dL (11.5-16.0); IMMATURE GRAN ABSOLUTE AUTO 0.04 K/mm3 (0.00-0.10); IMMATURE GRAN PERCENT AUTO 1 % (0-1); LYMPHOCYTES ABSOLUTE AUTO 2.58 K/mm3 (0.84-5.20); LYMPHOCYTES PERCENT AUTO 30 % (21-46); MONOCYTES ABSOLUTE AUTO 0.56 K/mm3 (0.16-1.47); MONOCYTES PERCENT AUTO 7 % (4-13); Mean Corpuscular HGB 30.5 pg (26.0-34.0); Mean Corpuscular HGB Conc 33.1 g/dL (31.5-36.5); Mean Corpuscular Volume 92 fL (80-100); Mean Platelet Volume 10.2 fL (9.1-12.4); NEUTROPHILS ABSOLUTE AUTO 5.36 K/mm3 (1.96-9.15); NEUTROPHILS PERCENT AUTO 62 % (41-73); Platelet Count 292 K/mm3 (150-400); RDW Standard Deviation 43.9 fL (35.1-46.3); Red Blood Cell Count 4.16 M/mm3 (3.80-5.20); White Blood Cell Count 8.68 K/mm3 (4.00-11.30)
[2021-04-30 14:09] LABS: Appearance, Urine Hazy (Clear); Bilirubin, Urine Neg (Neg); Blood, Urine 5+ (Neg); Color, Urine Amber (P-Yellow); Glucose Qualitative, Urine Neg (Neg); Ketones, Urine Neg (Neg); Leukocyte Esterase, Urine Neg (Neg); Nitrite, Urine Neg (Neg); Protein, Urine 1+ (Neg); U Amphetamine Screen Not Detected; U Barbituate Screen Not Detected; U Benzodiazapine Screen Not Detected; U Buprenorphine Screen Not Detected; U Cannabinoids Screen Not Detected; U Cocaine Screen Not Detected; U Methadone Screen Not Detected; U Methamphetamine Screen Not Detected; U Opiates Screen Not Detected; U Oxycodone Screen Not Detected; U Phencyclidine Screen Not Detected; U Propoxyphene Screen Not Detected; Urobilinogen, Urine NORM (Normal)
[2021-04-30 14:10] LABS: Acetaminophen, Random <2.0 ug/mL (10.0-30.0); Alanine Aminotransfer (ALT/SGP 16 U/L (12-78); Albumin, Blood 3.1 g/dL (3.4-5.0); Albumin/Globulin Ratio 0.7 (0.8-1.8); Alk Phos 82 U/L (50-136); Anion Gap 3 mmol/L (6-16); Aspartate Aminotrans (AST/SGOT 14 U/L (12-37); Bilirubin, Total 0.3 mg/dL (0.1-1.0); Blood Urea Nitrogen 13 mg/dL (8-24); Bun/Creatinine Ratio 19.1 (12.0-20.0); CO2, Blood 28 mmol/L (21-32); Calcium, Blood 8.6 mg/dL (8.5-10.1); Chloride, Blood 108 mmol/L (98-108); Creatinine, Blood 0.68 mg/dL (0.40-1.00); Ethanol (Alcohol), Blood, Med <3 mg/dL; Globulin, Blood 4.4 g/dL (2.2-4.0); Glomerular Filtration Rate >60 (60-); Glucose, Blood 95 mg/dL (70-99); Potassium, Blood 4.2 mmol/L (3.5-5.5); Salicylate 4.4 mg/dL (2.8-20.0); Sodium, Blood 139 mmol/L (136-145); Total Protein, Blood 7.5 g/dL (6.4-8.2)
[2021-04-30 14:11] LABS: Bacteria Few /hpf; Red Blood Cells, Urine 25-50 /hpf (0-2); Squamous Epithelial Cells Few /hpf (Few); White Blood Cells, Urine 0-2 /hpf (0-5)
[2021-04-30] MEDS ORDERED: METPHE20 PO ×2 (14:11)
[2021-04-30] MEDS ORDERED: QUETIAPINE FUMA PO (14:12)
[2021-04-30] MEDS ORDERED: ESCI10 PO (14:13)
[2021-04-30 15:14] LABS: SARS-Cov-2 (COVID-19) PCR, MMC NEGATIVE (NEGATIVE)
[2021-05-03] MEDS ORDERED: BUPR75 PO (16:05)
== END 2021-05-03 16:19 | disposition home or self-care (01) ==
LOC: ER 12:19 → EOR 12:20
PROVIDERS: Physician Assistant; ADMIT Emergency Medicine
DX: F31.81 Bipolar II disorder (principal); F98.8 Other specified behavioral and emotional disorders with onset usually occurring in childhood and adolescence; E11.9 Type 2 diabetes mellitus without complications; J45.909 Unspecified asthma, uncomplicated; Z20.822 Contact with and (suspected) exposure to COVID-19; Z91.51 Personal history of suicidal behavior; Z88.8 Allergy status to other drugs, medicaments and biological substances; Z88.5 Allergy status to narcotic agent; Z79.84 Long term (current) use of oral hypoglycemic drugs
CPT/HCPCS: 36415; 80053; 81001; 81025; 82947; 85025; 99285; A9270; G0378; G0480; U0004

== ENCOUNTER → 2021-05-28 | Outpatient (CLI) | payer OTHER ==
[~2021-05-28] MED LIST changes: +BUPR75 PO; +METPHE20 PO; +QUETIAPINE FUMA PO
[2021-05-29 16:07] LABS: HPV 16 Negative (Negative); HPV 18 Negative (Negative); HPV OTHER HR TYPES Negative (Negative)
== END | disposition home or self-care (01) ==
LOC: LAB SHORT 16:18
PROVIDERS: Family Medicine
DX: Z01.419 Encounter for gynecological examination (general) (routine) without abnormal findings (principal)
CPT/HCPCS: 87624; G0123

== ENCOUNTER → 2021-05-28 | Outpatient (CLI) | payer OTHER | END | disposition home or self-care (01) | LOC: LAB SHORT 07:41 → LAB 07:41 | DX: N93.9 Abnormal uterine and vaginal bleeding, unspecified (principal) | CPT/HCPCS: 88305 ==

== ENCOUNTER 2021-06-15 15:14 | Observation (INO) | payer OTHER ==
[~2021-06-15] VITALS: Ht 162.6 cm; Wt 102.1 kg
[2021-06-15 16:38] LABS: BASOPHILS ABSOLUTE AUTO 0.04 K/mm3 (0.00-0.23); BASOPHILS PERCENT AUTO 1 % (0-2); EOSINOPHILS ABSOLUTE AUTO 0.13 K/mm3 (0.00-0.68); EOSINOPHILS PERCENT AUTO 2 % (0-6); Hematocrit 39.8 % (33.0-51.0); Hemoglobin 13.4 g/dL (11.5-16.0); IMMATURE GRAN ABSOLUTE AUTO 0.03 K/mm3 (0.00-0.10); IMMATURE GRAN PERCENT AUTO 0 % (0-1); LYMPHOCYTES ABSOLUTE AUTO 2.79 K/mm3 (0.84-5.20); LYMPHOCYTES PERCENT AUTO 36 % (21-46); MONOCYTES ABSOLUTE AUTO 0.65 K/mm3 (0.16-1.47); MONOCYTES PERCENT AUTO 8 % (4-13); Mean Corpuscular HGB Conc 33.7 g/dL (31.5-36.5); Mean Corpuscular Volume 89 fL (80-100); Mean Platelet Volume 9.8 fL (9.1-12.4); NEUTROPHILS ABSOLUTE AUTO 4.23 K/mm3 (1.96-9.15); NEUTROPHILS PERCENT AUTO 54 % (41-73); Platelet Count 367 K/mm3 (150-400); RDW Coefficient Variation 11.9 % (11.7-14.2); RDW Standard Deviation 38.6 fL (35.1-46.3); Red Blood Cell Count 4.46 M/mm3 (3.80-5.20); White Blood Cell Count 7.87 K/mm3 (4.00-11.30)
[2021-06-15 16:53] LABS: Source, Urine Clean Catch
[2021-06-15 16:56] LABS: Alanine Aminotransfer (ALT/SGP 23 U/L (12-78); Albumin, Blood 3.7 g/dL (3.4-5.0); Albumin/Globulin Ratio 0.8 (0.8-1.8); Alk Phos 91 U/L (50-136); Anion Gap 4 mmol/L (6-16); Aspartate Aminotrans (AST/SGOT 18 U/L (12-37); Bilirubin, Total 0.6 mg/dL (0.1-1.0); Blood Urea Nitrogen 8 mg/dL (8-24); Bun/Creatinine Ratio 8.4 (12.0-20.0); CO2, Blood 26 mmol/L (21-32); Calcium, Blood 8.9 mg/dL (8.5-10.1); Chloride, Blood 109 mmol/L (98-108); Creatinine, Blood 0.95 mg/dL (0.40-1.00); Ethanol (Alcohol), Blood, Med <3 mg/dL; Globulin, Blood 4.6 g/dL (2.2-4.0); Glomerular Filtration Rate >60 (60-); Glucose, Blood 108 mg/dL (70-99); Potassium, Blood 3.7 mmol/L (3.5-5.5); Salicylate 3.9 mg/dL (2.8-20.0); Sodium, Blood 139 mmol/L (136-145); Total Protein, Blood 8.3 g/dL (6.4-8.2)
[2021-06-15 16:57] LABS: Acetaminophen, Random <2.0 ug/mL (10.0-30.0)
[2021-06-15 17:00] LABS: Appearance, Urine Clear (Clear); Bilirubin, Urine Neg (Neg); Blood, Urine Neg (Neg); Color, Urine Yellow (P-Yellow); Glucose Qualitative, Urine Neg (Neg); Ketones, Urine Neg (Neg); Leukocyte Esterase, Urine Neg (Neg); Nitrite, Urine Neg (Neg); Protein, Urine 1+ (Neg); Urobilinogen, Urine NORM (Normal)
[2021-06-15 17:13] LABS: U Amphetamine Screen Not Detected; U Barbituate Screen Not Detected; U Benzodiazapine Screen Not Detected; U Buprenorphine Screen Not Detected; U Cannabinoids Screen Not Detected; U Cocaine Screen Not Detected; U Methadone Screen Not Detected; U Methamphetamine Screen Not Detected; U Opiates Screen Not Detected; U Oxycodone Screen Not Detected; U Phencyclidine Screen Not Detected; U Propoxyphene Screen Not Detected
[2021-06-15 17:40] LABS: Influenza A, PCR NEGATIVE (NEGATIVE); Influenza B, PCR NEGATIVE (NEGATIVE); Resp Syncytial Virus, PCR NEGATIVE (NEGATIVE); SARS-Cov-2 (COVID-19) PCR, MMC NEGATIVE (NEGATIVE)
== END 2021-06-18 11:45 | disposition home or self-care (01) ==
LOC: ER 15:14 → EOR 15:15
PROVIDERS: Physician Assistant; ADMIT Emergency Medicine
DX: F31.9 Bipolar disorder, unspecified (principal); G47.00 Insomnia, unspecified; J45.909 Unspecified asthma, uncomplicated; E11.9 Type 2 diabetes mellitus without complications; F17.200 Nicotine dependence, unspecified, uncomplicated; Z88.5 Allergy status to narcotic agent; Z88.8 Allergy status to other drugs, medicaments and biological substances; Z20.822 Contact with and (suspected) exposure to COVID-19; Z79.84 Long term (current) use of oral hypoglycemic drugs
CPT/HCPCS: 0241U; 80053; 81025; 85025; 99285; A9270; G0378; G0480; Q3014

== ENCOUNTER 2024-04-18 18:30 | Emergency (ER) | payer OTHER ==
[~2024-04-18] VITALS: Ht 165.1 cm; Wt 111.1 kg
[2024-04-18 18:51] VITALS: BP 141/90
== END 2024-04-18 20:06 | disposition home or self-care (01) ==
LOC: ER 18:30
DX: J40 Bronchitis, not specified as acute or chronic (principal); J45.909 Unspecified asthma, uncomplicated; F31.9 Bipolar disorder, unspecified; E11.9 Type 2 diabetes mellitus without complications; F17.290 Nicotine dependence, other tobacco product, uncomplicated; Z88.8 Allergy status to other drugs, medicaments and biological substances; Z79.899 Other long term (current) drug therapy; Z79.84 Long term (current) use of oral hypoglycemic drugs
CPT/HCPCS: 71046; 99283-25

== ENCOUNTER → 2024-11-26 | Outpatient (CLI) | payer MEDICARE, OTHER ==
[2024-11-26 15:31] LABS: Microalb/Creat Ratio UR, Rand Unable to Calculate mg/g (0.000-30.000); Microalbumin, Random Urine <5.000 mg/L (0.000-20.000)
== END ==
LOC: LAB SHORT 11:32 → LAB 11:32
PROVIDERS: Physician Assistant
DX: E11.42 Type 2 diabetes mellitus with diabetic polyneuropathy (principal)
CPT/HCPCS: 82043; 82570

== ENCOUNTER → 2025-01-24 | Outpatient (CLI) | payer MEDICARE, OTHER ==
[2025-01-26 12:18] LABS: GIARDIA ANTIGEN BY EIA Negative (Negative)
[2025-01-26 18:22] LABS: LACTOFERRIN,FECAL BY ELISA Negative (Negative)
[2025-01-28 16:14] LABS: OVA AND PARASITE,FECAL INTERP Negative (Negative)
== END ==
LOC: LAB 08:45 → LAB SHORT 08:45 → LAB FUT 12-27 09:05
PROVIDERS: Internal Medicine Gastroenterology
DX: K59.00 Constipation, unspecified (principal); R11.2 Nausea with vomiting, unspecified; R19.7 Diarrhea, unspecified
CPT/HCPCS: 83630; 87177; 87209; 87329